=== PATIENT | female | born 2000 | race Caucasian/White ===

== ENCOUNTER 2023-08-14 14:45 | Emergency (ER) | payer BC, SELFPAY ==
[2023-08-14 14:45] VITALS: BP 121/93; PULSE 91; RESP 16; TEMP 36.8; O2SAT 99; BMI 42.9
[2023-08-14 15:12] VITALS: BP 120/93; PULSE 87; RESP 18; O2SAT 98
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
== END 2023-08-14 15:14 | disposition home or self-care (01) ==
PROVIDERS: Emergency Provider Emergency Medicine
DX: S09.8XXA Other specified injuries of head, initial encounter (principal); V43.52XA Car driver injured in collision with other type car in traffic accident, initial encounter
CPT/HCPCS: 99283

== ENCOUNTER 2025-03-13 12:54 | Outpatient (OUT) | payer BC, SELFPAY ==
[2025-03-13 13:26] LABS: Hematocrit 41.6 % (36.0-48.0); Hemoglobin 14.2 g/dL (12.0-16.0); Immature Granulocytes Abs Auto 0.00 10^3/uL (0.00-0.03); Immature Granulocytes Pct Auto 0.0 % (0.0-0.5); Lymphocytes Absolute Auto 2.0 10^3/uL (1.2-3.8); Mean Corpuscular HGB Conc 34.1 g/dL (29.9-35.2); Mean Corpuscular Hemoglobin 28.9 pg (26.7-34.0); Mean Corpuscular Volume 84.6 fL (81.0-99.0); Platelet Count 384 10^3/uL (150-450); Red Blood Count 4.92 10^6/uL (4.20-5.40); White Blood Count 5.4 10^3/uL (4.0-11.0)
[2025-03-13 13:46] LABS: Thyroid Stimulating Hormone 0.700 uIU/mL (0.358-3.740)
[2025-03-14 04:07] LABS: FSH 4.7 mIU/mL (.)
[2025-03-20 17:08] LABS: DHEA, Serum 449 ng/dL (31-701)
== END 2025-03-13 12:55 | disposition home or self-care (01) ==
LOC: LAB 12:59
PROVIDERS: Visit Provider Nurse Practitioner Family
DX: E28.2 Polycystic ovarian syndrome (principal); N92.6 Irregular menstruation, unspecified
CPT/HCPCS: 36415; 82397; 82626; 82627; 83001; 83002; 83036; 84439; 84443; 84702; 85025

== ENCOUNTER 2025-03-20 08:15 | Outpatient (OUT) | payer BC, SELFPAY ==
--- OUTSIDE RECORDS SUMMARY | 2025-03-20 08:18 | XMS_ITS | CCD ---
Author Organization [facility] Care Team Providers Care Preconstruction Manager Name Role Phone Dwayne LOMBARDO Attending Unavailable DONAL DUMONT Admitting Unavailable DORIAN KAUFFMAN Consulting DR SATYA Farfan Primary Care Unavailable DONAL DUMONT Attending Unavailable DONAL DUMONT Consulting Unavailable KARRIE ODOM Consulting Unavailable Unavailable Primary Care Provider EDUARDA Huertas Attending Unavailable Medications Current Medications Medication Drug Class(es) Dates Sig (Normalized) Sig (Original) ASHWAGANDHA PO (3 sources) ASHWAGANDHA PO Take by mouth Active guanFACINE 2 mg oral tablet (3 sources) Central alpha-2 Adrenergic Agonist End: 03-05-2025 guanFACINE (Tenex) 2 MG tablet Take by mouth 03/05/2025 Discontinued 24 hr metFORMIN hydrochloride 500 mg extended release oral tablet (3 sources) Biguanide Start: 03-05-2025 End: 04-04-2025 take 1 tablet by mouth every twenty-four hours at mealtime metFORMIN XR (Glucophage-XR) 500 MG 24 hr tablet Indications: PCOS (polycystic ovarian syndrome) Take 1 tablet (500 mg) by mouth in the evening. Take with meals Do not crush, chew, or split. 30 tablet 11 03/05/2025 04/04/2025 Active minocycline 100 mg oral capsule (3 sources) Tetracycline-clas s Drug End: 03-05-2025 minocycline 100 MG capsule 1 capsule 1 (one) time each day at the same time 03/05/2025 Discontinued Problems Problem Classification Problem Date Documented Da te Episodic/Chronic Menstrual disorders (2 sources) Irregular periods; Translations: [Irregular menstruation, unspecified] 03-05-2025 Chronic Other endocrine disorders (2 sources) Polycystic ovary syndrome; Translations: [Polycystic ovarian syndrome] 03-05-2025 Chronic Results Test Name Value Interpretation Reference Range Facility ALL CBC WITH AUTO DIFFon BASOPHILS ABSOLUTE AUTO 0 [facility] Basophils/100 WBC (Bld) 0.7 % 0.2 - 2.0 % [facility] Eosinophils/100 WBC (Bld) 1.7 % 0.9 - 7.0 % [facility] Erythrocyte distribution width (RBC) [Ratio] 13.2 % 11.0 - 15.0 % [facility] Hematocrit (Bld) [Volume fraction] 41.6 % 36.0 - 48.0 % [facility] Hemoglobin (Bld) [Mass/Vol] 14.2 g/dL 12.0 - 16.0 g/dL [facility] IMMATURE GRANULOCYTES ABS AUTO 0 [facility] Immature granulocytes/100 WBC (Bld) 0 % 0.0 - 0.5 % [facility] LYMPHOCYTES ABSOLUTE AUTO 2 [facility] Lymphocytes/100 WBC (Bld) 36.7 % 20.5 - 60.0 % [facility] MCH (RBC) [Entitic mass] 28.9 pg 26.7 - 34.0 pg [facility] MCHC (RBC) [Mass/Vol] 34.1 g/dL 29.9 - 35.2 g/dL [facility] MCV (RBC) [Entitic vol] 84.6 fL 81.0 - 99.0 fL [facility] MONOCYTES ABSOLUTE AUTO 0.4 [facility] Monocytes/100 WBC (Bld) 7.8 % 1.7 - 12.0 % [facility] NEUTROPHILS ABSOLUTE AUTO 2.9 [facility] Neutrophils/100 WBC (Bld) 53.1 % 43.0 - 75.0 % [facility] Platelet mean volume (Bld) [Entitic vol] 10 fL 9.5 - 13.5 fL [facility] EO # 0.1 [facility] PLT 384 [facility] RBC 4.92 [facility] WBC 5.4 [facility] XR FOOT RT MIN 3 VIEWSon XR FOOT RT MIN 3 VIEWS EXAM: XR FOOT RT MIN 3 VIEWS HISTORY: Pain COMPARISON: None. FINDINGS: 3 radiographs of the right foot were obtained. No fracture or dislocation. Joint spaces are well-maintained. Soft tissues are within normal limits. Os naviculare. IMPRESSION: No fracture or dislocation. Electronically authenticated by: KARRIE ODOM Date: 2022-11-11 20:20 Normal [facility] 08-27-2022 Consent [id number]:127 Normal [facility] Registrationon 08-27-2022 Registration [id number]:127 Normal [facility] Established Visit (Orthopaed ic Surgery)on 06-19-2018 Established Visit (Orthopaedic Surgery) Chief Complaint Pt here for left wrist fx. /robbin History of Present Illness ASSESSMENT + PLAN : 7 weeks postop from ORIF left ulnar styloid nonunion The long-arm cast was removed today. Work on the range of motion exercises that I demonstrated. The joint does appear stable. The incision has healed. You may gradually advance activity, but should avoid activities where your likely to take a bodyweight fall or other similar intact. Follow-up in 4 weeks for clinical check. HISTORY : Patient returns as directed, 4 weeks after last visit and about 7 weeks postop from ORIF left ulnar styloid nonunion. Given the difficulty with [place] casts, she has been in a long-arm cast. Pain has resolved. No difficulties with cast loosening. No numbness or tingling. No interval trauma. 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, subsequent encounter (993.82) (S55.272K) Past Medical History History of Colles' fracture of left radius (813.41) (S52.055A) Surgical History Denied: History Of Prior Surgery Family History Family history of cardiac disorder (V17.49) (Z82.49) Family history of diabetes mellitus (V18.0) (Z83.3) Family history of hypertension (V17.49) (Z82.49) Allergies No Known Drug Allergies Recorded By: Yulisa Diop; 04/17/2014 4:58:49 PM Current Meds Concerta 36 MG Oral Tablet Extended Release; Therapy: (Recorded:17Apr2014) to Recorded Dispense: 0 Days ; #: Sufficient; Refill: 0; TEE = N; Record; Last Updated By: Jadon Yulisa Reggie; 04/17/2014 5:18:14 PM Physical Exam Cast removed. Skin intact. Incision is well-healed and nontender. Full composite finger flexion-extension. Elbow is stiff as expected. Rotation is much better than expected, just out of a long-arm cast. Supination is 80 and pronation 70 with soft endpoints. DRUJ is stable at the end points. Sensation intact to light touch in all distributions. Capillary refill less than 2 seconds. 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 RL History of Present Illness ASSESSMENT + PLAN : Postop day 23 from ORIF left ulnar styloid nonunion This [place] cast became loose as well. Given the shape of your arm, I think a fiberglass long-arm cast will do better. One was molded to fit today. Keep this clean, dry, and in place. Follow-up as previously scheduled for cast removal and clinical check with probable advancement to unrestricted activity. HISTORY : Patient's family called in that the [place] cast had become loose. This was already the second cast since surgery. She came in for inspection and cast change. She denies interval trauma. No numbness or tingling. 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, subsequent encounter (258.29) (S52.612K) Past Medical History History of Colles' fracture of left radius (813.41) (S52.532A) Surgical History Denied: History Of Prior Surgery Family History Family history of cardiac disorder (V17.49) (Z82.49) Family history of diabetes mellitus (V18.0) (Z83.3) Family history of hypertension (V17.49) (Z82.49) Allergies No Known Drug Allergies Recorded By: Yulisa Diop; 04/17/2014 4:58:49 PM Current Meds Concerta 36 MG Oral Tablet Extended Release; Therapy: (Recorded:17Apr2014) to Recorded Dispense: 0 Days ; #: Sufficient; Refill: 0; TEE = N; Record; Last Updated By: Yulisa Diop; 04/17/2014 5:18:14 PM Physical Exam Cast removed. It was indeed loose. She does have a fairly conical arm. Skin intact. Incision is healing normally with no sign of infection. Good finger motion. Sensation intact to light touch in all distributions. Capillary refill less than 2 seconds. 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 DT History of Present Illness Cast sliding down arm after yesterday's visit. 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, subsequent encounter (393.82) (S52.612K) Past Medical History History of Colles' fracture of left radius (813.41) (S52.532A) Surgical History Denied: History Of Prior Surgery Family History Family history of cardiac disorder (V17.49) (Z82.49) Family history of diabetes mellitus (V18.0) (Z83.3) Family history of hypertension (V17.49) (Z82.49) Allergies No Known Drug Allergies Recorded By: Yulisa Diop; 04/17/2014 4:58:49 PM Current Meds Concerta 36 MG Oral Tablet Extended Release; Therapy: (Recorded:17Apr2014) to Recorded Dispense: 0 Days ; #: Sufficient; Refill: 0; TEE = N; Record; Last Updated By: Yulisa Diop; 04/17/2014 5:18:14 PM Physical Exam Wound area covered and w/o signs of bleeding or infection. Constitutional General appearance: Alert and in no acute distress. Well developed, well nourished. Musculoskeletal Gait and station: Normal. Skin Skin and subcutaneous tissue: Normal skin color and pigmentation, normal skin turgor, and no rash. 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 Keep f/u with Dr. Sandhu. Signatures Electronically signed by : Antonio Jerez, ; May 12 2018 2:23PM EST (Author) Normal [facility] Post Op (Orthopaedic Surgery) Chief Complaint POV- Clinical check (L) wrist (sx 04/25/18) History of Present Illness ASSESSMENT + PLAN : Postop day 16 from ORIF left ulna styloid nonunion The incision is healing normally. The x-rays look good. I reviewed the expected time course of healing from here. We discussed options for immobilization and agreed on use of a [place] cast, which was applied today. Keep this clean, dry, and in place for the next 4 weeks. Follow-up at that point for cast removal and clinical check with probable advancement to unrestricted activity. HISTORY : Patient returns as directed, 16 days postop from left ulnar styloid nonunion ORIF with tension band technique. Pain is decreasing appropriately in the postoperative dressing. No new numbness or tingling. No new surgeries. No interval trauma. 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, subsequent encounter (204.94) (L49.900C) Past Medical History History of Colles' fracture of left radius (813.41) (S52.532A) Surgical History Denied: History Of Prior Surgery Family History Family history of cardiac disorder (V17.49) (Z82.49) Family history of diabetes mellitus (V18.0) (Z83.3) Family history of hypertension (V17.49) (Z82.49) Allergies No Known Drug Allergies Recorded By: Yulisa Diop; 04/17/2014 4:58:49 PM Current Meds Concerta 36 MG Oral Tablet Extended Release; Therapy: (Recorded:17Apr2014) to Recorded Dispense: 0 Days ; #: Sufficient; Refill: 0; TEE = N; Record; Last Updated By: Yulisa Diop; 04/17/2014 5:18:14 PM Physical Exam Postop splint and dressing removed. Incision clean, dry, intact with Biosyn suture in place. Full composite finger flexion-extension. Clinically well aligned. DRUJ remained stable to gentle stress. Sensation intact to light touch in all distributions. Capillary refill less than 2 seconds. 2+ radial and ulnar pulses. Results/Data X-rays left wrist ordered and independently interpreted by me today confirm proper hardware position and length with anatomic reduction, unchanged from the intraoperative views. Diagnoses/Problems Closed displaced fracture of styloid process of left ulna with nonunion, subsequent encounter (913.82) (S51.984K) Signatures Electronically signed by : Vince Sandhu MD,; May 12 2018 11:55AM EST (Author) [facility] WRIST, COMPLT MIN 3 VIEWSon 05-11-2018 WRIST, COMPLT MIN 3 VIEWS Patient Name: SAMANTHA ALEXIS STUDY: WRIST COMPLT; MIN 3 VIEWS; 05/11/2018 9:42 am INDICATION: Signs/Symptoms: wrist pain. COMPARISON: 03/22/2018 ACCESSION NUMBER(S): [id number] ORDERING CLINICIAN: BUBBA SANDHU FINDINGS: Left wrist three views. Remote ulnar styloid fracture with a fixation pin noted. The hardware appears intact. No additional visualized abnormality IMPRESSION: Remote ulnar styloid fracture with intact hardware as noted Electronically signed by: BRYAN PINEDO MD Normal [facility] AMBULATORY SURGERY FLUOROSCO P[place]on 04-25-2018 AMBULATORY SURGERY FLUOROSCOPY Patient Name: SAMANTHA ALEXIS STUDY: AMBULATORY SURGERY FLUOROSCOPY; 04/25/2018 4:12 pm INDICATION: left wrist orif. COMPARISON: None. ACCESSION NUMBER(S): [id number] ORDERING CLINICIAN: BUBBA SANDHU TECHNIQUE: 3 spot fluoroscopic images of a left wrist as intraoperative procedure were submitted for interpretation on 04/25/2018. Fluoroscopic time was 8 sec. FINDINGS: 3 intraoperative spot fluoroscopic images of the left wrist were submitted. IMPRESSION: 1. Intraoperative fluoroscopy for localization purposes. Electronically signed by: ANDREIA CRAIG MD [facility] History and Physical - Surge ry > 30 dayson 04-25-2018 History and Physical - Surgery > 30 days History of Present Illness: /Lactating: Are You no (1) Are You Currently Breastfeedingno (1) History Present Illness: Reason for surgery: L ulna styloid fracture nonunion HPI: Patient has L ulna styloid fracture nonunion after remote distal radius fx managed closed at outside facility. Here for operative intervention. No interval changes since last clinic visit. Okay to proceed with surgery. Home Medication Review: Home Medications Reviewed: no Impression/Procedure: Impression and Planned Procedure: L ulna styloid fracture ORIF Review of Systems: Review of Systems: Constitutional: NEGATIVE: Chills Eyes: NEGATIVE: Diploplia ENMT: NEGATIVE: Nasal Discharge Cardiac: NEGATIVE: Dyspnea on Exertion Gastrointestinal: NEGATIVE: Nausea Genitourinary: NEGATIVE: Flank Pain Musculoskeletal: POSITIVE: Pain, Swelling, Weakness; NEGATIVE: Decreased ROM, Stiffness Psychiatric: NEGATIVE: Mood Changes Skin: NEGATIVE: Rash Allergic/Immunologic: NEGATIVE: Anaphylaxis Physical Exam: Constitutional: WD WN obese WF in NAD ; alert and cooperative Eyes: Anicteric ENMT: mucous membranes moist, no apparent injury, no lesions seen Head/Neck: NC/AT Respiratory/Thorax: Unlabored breathing on RA Cardiovascular: PPP Musculoskeletal: intact motors ; unstable DRUJ in supination Neurological: Grossly intact Skin: No gross lesions Signatures/Attestation/Cert ification: Attending AttestationI saw and evaluated the patient. I personally obtained the bartholomew and critical portions of the history and physical exam or was physically present for bartholomew and critical portions performed by the resident/fellow. I reviewed the resident/fellows documentation and discussed the patient with the resident/fellow. I agree with the resident/fellows medical decision making as documented in the residents note. I personally evaluated the patient (as noted in the above attestation) on 25-Apr-2018 Attending Provider Inpatient Certification StatementN/A - observation patient/other outpatient visits Electronic Signatures: Bubba Sandhu) (Signed 26-Apr-2018 07:59) Authored: History of Present Illness, Review of Systems, Physical Exam, Signatures/Attestation/Cert ification Co-Signer: Signatures/Attestation/Cert ification Ga Baker (Resident)) (Signed 25-Apr-2018 10:21) Authored: History of Present Illness, Home Medication Review, Impression/Procedure, Physical Exam, Signatures/Attestation/Cert ification Last Updated: 26-Apr-2018 07:59 by Bubba Sandhu) References: 1. Data Referenced From History and Physical - Surgery > 30 days 24-Apr-2018 07:39 PM Normal [facility] OPERATIVE REPORTon [place] [address] Patient Name: CHLOE. Kerrie ALEXIS : 2000 Date of Service: 04/25/2018 Patient Location: Patient Type: O Surgeon: Bubba Sandhu MD Report Type: Operative Reports PREOPERATIVE DIAGNOSIS: Left ulnar styloid nonunion. POSTOPERATIVE DIAGNOSIS: Left ulnar styloid nonunion. OPERATION/PROCEDURE: Open reduction and internal fixation, left ulnar styloid nonunion. SURGEON: Bubba Sandhu MD BAKERY HELPER(S): Ga Baker MD ANESTHESIA: General LMA. INDICATION: Samantha is a 17-year-old, right-hand dominant young lady who fell several years ago, suffering a displaced extra-articular left distal radius fracture that was managed closed at an outside institution. That fracture healed, but she had ulnar styloid nonunion and resultant mild DRUJ instability. To maximize return to function and minimize risk of posttraumatic arthritis, she is here for elective stabilization of the ulnar styloid. I reminded her and her father of surgical risks of infection; scarring; damage to nerves, tendons, or vessels; stiffness; wound healing problems; nonunion; malunion; hardware issues; and need for further surgery. They wished to proceed. NARRATIVE: Following identification of the patient and confirmation of correct site of surgery and signed operative consent, she was brought to the operating room and a hand table affixed to the cart. A general anesthetic was administered via LMA by Anesthesia along with IV antibiotic dose. A pneumatic tourniquet was placed high on the left arm, and the limb was prepped from fingertip to cuff with chlorhexidine, and draped free in the usual sterile fashion. 4 mL of a mix of 0.5% Marcaine and 1% lidocaine plain was instilled to the planned incision area. The limb was exsanguinated with an Esmarch, and the tourniquet inflated. A 4 cm longitudinal incision was made over the subcutaneous border of the ulna, centered on the ulnar styloid, and taken carefully bluntly down. Two crossing branches of the dorsal ulnar sensory nerve were carefully protected throughout the case. The periosteum was incised along the free border, just volar to the ECU tendon, and periosteal flaps elevated. The styloid nonunion site was obvious. Some organizing fibrous material was excised with a rongeur, and the bony ends gently freshened with a sharp curette. Using a soft tissue protector, a 0.054 K-wire was placed to the tip of the ulnar styloid. The styloid was then held reduced as the wire was directed under power across the nonunion site and up to engage the ulnar shaft cortex. A separate small K-wire was then used to create converging bone tunnels proximal to the ulnar neck. These were enlarged and connected with a towel clip, and a #2 steel wire was passed through. This was wrapped around the K-wire in standard [id number] fashion and tightened with a single twist knot. This gave excellent stabilization to the nonunion fragment under direct vision. Proper alignment was confirmed with C-arm in multiple planes and accepted. The wire was drawn back, bent, and re-seated in standard fashion. Periosteum was repaired with 4-0 Vicryl. The tourniquet was deflated, and pink color rapidly returned to all digits. Hemostasis was achieved with bipolar. After final irrigation, skin was closed with 4-0 Vicryl subcutaneous and 4-0 Biosyn interrupted simple skin stitch. The previous instability in pronation was now corrected. The forearm was placed in pronation and soft dressing applied, followed by a sugar-tong splint. The patient was then awakened, extubated, and transferred to Recovery in stable condition. ESTIMATED BLOOD LOSS: 2 cc. TOTAL FLUIDS: 600 mL LR. TOURNIQUET TIME: 43 minutes at 250 mmHg. INTRAOPERATIVE COMPLICATIONS: None. Bubba Sandhu MD EST TT: 04/27/2018 04:16 AM EST DICTATION NUMBER: [id number] COLT JOB NUMBER: [id number] CC: MARLYN TURPIN Edited by Bubba Sandhu 04/29/2018 07:00:37 [address] Electronically Signed by Dr. Bubba Sandhu 04/29/2018 07:00:37 AM Normal [facility] Preop Checkliston 04-25-2018 Preop Checklist Preop Checklist: Preop Checklist: Arrival [id number] Arrival Time09:45 Procedure Typeorif ulna left NPO [id number] 00:00 ID Band Onyes Allergy Bandno known allergies Consent Signedpending H&P Completepending Anesthesia Assessment Completedpending EKG Performednot ordered Chest X-Ray Performednot ordered Chlorhexadine Bath Givennot applicable Hair Washedno Soap and water bath with hair shampoo the night before surgeryno SCD's Appliedno Denturesnot applicable Prostheticsnot applicable Hearing Aidsnot applicable Valuables Securedplaced under cart Bowel Prepno Cardiovascular Assessment: Radial Pulsespalpable Extremitieswarm Respiratory Assessment: Respirationsunlabored Neurological Assessment: Level of Consciousnessalert, oriented Mobilitymoves all extremities Able to Express Selfyes Age Appropriateyes Emotional Statuscalm Preop Education: Surgical Site Infection Preventionyes Pain Scales and Managementyes Language / Communication: Language / CommunicationEnglish Electronic Signatures: Leonila Egan (WENDY) (Signed 25-Apr-2018 09:46) Authored: Preop Checklist Last Updated: 25-Apr-2018 09:46 by Leonila Egan (WENDY) [facility] Established Visit (Orthopaed ic Surgery)on 04-24-2018 Established Visit (Orthopaedic Surgery) Chief Complaint Pt here for left wrist fx. 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 I discussed the option of surgical repair with tension band technique to try to improve the stability of the wrist and decreased the pain. I reviewed the major risks and benefits of that surgery which would be done under a general anesthetic at the location of your convenience. In the meantime, continue with the current bracing. I would like to obtain an MRI of the wrist to better evaluate the remainder of the TFCC to make sure that this is the only significant pathology. Contact my office if you would like to schedule a surgical date. HISTORY : 1 Patient is a 17-year-old right-hand dominant female student who presents several years after left wrist injury. She fell in 2013, suffering an extra-articular left distal radius fracture. This was managed closed with reduction by Dr. Baron at [facility] and the radius went on to heal. She had continued discomfort at the ulnar styloid and saw Dr. Vazquez in 2014 and again just a month ago. He identified and ulnar styloid nonunion and referred her on to me for definitive management. No numbness or tingling in the fingers. No noted instability. No problems on the right. Past medical history also notable for left supracondylar fracture pinned by Dr. Gibson at 6 years of age. That healed uneventfully. Patient is not diabetic and does not smoke. She is on Focalin.2 1 Amended By: Vince Sandhu; Apr 24 2018 12:00 PM EST 2 Amended By: Vince Sandhu; Apr 24 2018 12:08 PM ESTReview of Systems An updated 30-item multi-system Review Of Systems was obtained on today's intake form. This was reviewed with the patient and is correct. It has been scanned separately into the medical record.1 1 Amended By: Vince Sandhu; Apr 24 2018 12:08 PM EST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, subsequent encounter (733.82) (S52.722K) Past Medical History History of Colles' fracture of left radius (813.41) (S52.144A) Surgical History Denied: History Of Prior Surgery Family History Family history of cardiac disorder (V17.49) (Z82.49) Family history of diabetes mellitus (V18.0) (Z83.3) Family history of hypertension (V17.49) (Z82.49) Allergies No Known Drug Allergies Recorded By: Yulisa Diop; 04/17/2014 4:58:49 PM Current Meds Concerta 36 MG Oral Tablet Extended Release; Therapy: (Recorded:17Apr2014) to Recorded Dispense: 0 Days ; #: Sufficient; Refill: 0; TEE = N; Record; Last Updated By: Yulisa Diop; 04/17/2014 5:18:14 PM Physical Exam Constitutional: Appears stated age. Well-developed and well-nourished obese female in no acute distress. Psychiatric: Pleasant normal mood and affect. Behavior is appropriate for the situation. Head: Normocephalic and atraumatic. Eyes: Pupils are equal and round. Cardiovascular: 2+ radial and ulnar pulses. Fingers well-perfused. Respiratory: Effort normal. No respiratory distress. Speaking in complete sentences. Neurologic: Alert and oriented to person, place, and time. Skin: Skin is intact, warm and dry. Hematologic / Lymphatic: No lymphedema or lymphangitis. Extremities / Musculoskeletal: Skin of the left hand and wrist is intact with no erythema, ecchymosis, or diffuse swelling. Full composite finger flexion extension and good thumb opposition. Symmetric wrist flexion extension and elbow motion. Supination 80 versus 90 on the right. Symmetric 90 pronation. Wrist extension 80 and flexion 80, symmetric. No mid-arc pain or crepitus. DRUJ in pronation has about 1.5 millimeters of symmetric travel. Supination there is about 4 millimeters of travel on the left versus just one on the right. No particular pain with this. Negative TFCC grind. Negative DRUJ grind. Sensation intact to light touch in all distributions. Capillary refill less than 2 seconds.1 1 Amended By: Vince aSndhu; Apr 24 2018 12:10 PM ESTResults/Data The full series of x-rays in PACS was reviewed and independently interpreted by me today. There was no extra-articular distal radius fracture that did go on to heal. There is no ulnar styloid nonunion, minimally displaced. DRUJ and radiocarpal joints are well-preserved. 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, subsequent encounter MRI Wrist without Contrast; Status:Complete; Done: 11Apr2018 02:45PM Performed:WL;Ordered; For:Closed displaced fracture of styloid process of left ulna with nonunion, subsequent encounter; Ordered By:Vince Sandhu; AMA Intake Activity Log Entry by Katerin Medeiros ([email or web address]) on 04/13/2018 8:26 AM Status Change: To Confirmed - N/A AMA Intake updated by Katerin Medeiros ([email or web address]) on 04/13/2018 8:26 AM New Recipient: Bubba Sandhu Appointment Date: Apr 11 2018 2:45PM Reason: Unspecified for MRI Wrist without Contrast Laterality : Left Radiologist to Determine Optimal Study : Y What are the patient's signs and symptoms? : left wrist fx and pain Signatures Electronically signed by : Vince Sandhu MD,; Apr 24 2018 12:11PM EST (Author) Normal [facility] History and Physical - Surge ry > 30 dayson 04-24-2018 History and Physical - Surgery > 30 days This report has been cancelled. Normal [facility] BN MR WRIST W/O CONTRASTon 1 BN MR WRIST W/O CONTRAST Patient Name: SAMANTHA ALEXIS STUDY: BN MR WRIST W/O CONTRAST; INDICATION: Signs/Symptoms: left wrist fx and pain. COMPARISON: Plain film radiographs March 22, 2018 Prior plain film radiographs performed March 26, 2014 ACCESSION NUMBER(S): [id number] ORDERING CLINICIAN: BUBBA SANDHU TECHNIQUE: Multiplanar multisequential MRI left wrist without contrast. FINDINGS: Remote ulnar fracture with nonunion of the ulnar styloid and a residual large ossicle. Triangular fibrocartilage intact. No other fracture seen. No marrow edema identified. No focal fluid collections seen. Carpal alignment normal. Incidental note made of type 2 lunate. No significant arthrosis noted. No joint effusion or synovitis seen. There is a small amount of fluid of the tendons of the 1st extensor compartment which suggests a component of de Quervain tenosynovitis. IMPRESSION: Small amount of fluid of the tendons of the 1st extensor compartment which suggests a component of de Quervain tenosynovitis. Remote ulnar styloid fracture with nonunion. Electronically signed by: JUNIE MCKINLEY MD [facility] Initial Visit (Orthopaedic S harpreet)on 03-22-2018 Initial Visit (Orthopaedic Surgery) Chief Complaint Wrist Pain Evaluation of left wrist pain. History of Present Illness She is now 15+2 years old. She is right-hand dominant. She was reviewed in the [place] clinic today, accompanied by her dad. She is now over 3 years status post left wrist Colles' fracture that was treated with cast immobilization. When I last saw her, she was doing objectively well. However, subjectively, she was continuing to complain of left wrist pain that I felt was most consistent with deconditioning of the left wrist muscles. I had recommended self-directed exercises and had instructed them to follow-up if her symptoms did not improve. In the interim, her pain has persisted [although they did not contact me again]. In particular, she experiences ulnar-sided wrist pain when she is participating in band [she plays the drums]. It has not been enough to limit her participation but the discomfort is noticeable to her. This has not been associated with any distal neurologic abnormalities such as numbness, tingling, or weakness. There have been no color or temperature changes distally. Physical Exam Examination revealed an obese young lady girl in no acute distress. Examination of the left wrist did not reveal any malangulation or deformity. She was tender to palpation over the ulnar styloid. Stress testing of the distal radioulnar joint revealed increased excursion on the left compared to the right. Her left wrist range of motion was full. Sensory examination was intact in the median, radial, and ulnar nerve distributions. Motor examination was intact in the median, anterior interosseous, radial, posterior interosseous, and ulnar nerve distributions. Results/Data Xray Wrist 2 [id number] 01:14PMShamar Vazquez [Mar 22, 2018 1:10PM Shamar Vazquez] Reason: Unspecified for Xray Wrist 2 View Test NameResultFlagReference Xray Wrist 2 View(Report) Interpreted by: BRYAN MELISSA SHAHIDA 03/22/18 13:17 Patient Name: SAMANTHA ALEXIS STUDY: WRIST, 2 VIEWS; 03/22/2018 1:14 pm INDICATION: Signs/Symptoms: AP and lateral left wrist. COMPARISON: 10/16/2014 ACCESSION NUMBER(S): [id number] ORDERING CLINICIAN: SHAMAR VAZQUEZ FINDINGS: AP and lateral view of the left wrist. There is a remote ulnar styloid fracture with nonunion of the distal fragment. No additional visualized abnormality. IMPRESSION: Remote ulnar styloid fracture. No additional visualized abnormality Electronically signed by: BRYAN PINEDO 03/22/18 13:17 X-rays of the left wrist obtained today in clinic were reviewed and interpreted by me. These showed that her apex volar angulation have remodeled well on the lateral view. However, on the AP view, she appears to have an ulnar styloid nonunion. Diagnoses/Problems Closed fracture of styloid process of ulna with nonunion (733.82) (S52.373K) Orders PMH: Colles' fracture of left radius Xray Wrist 2 View; Status:Resulted - Requires Verification; Done: 22Mar2018 01:14PM Performed:WL; Due:20Jun2018;Ordered; For:PMH: Colles' fracture of left radius; Ordered By:Shamar Vazquez; Reason: Unspecified for Xray Wrist 2 View Laterality : Left Radiologist to Determine Optimal Study : Y What are the patient's signs and symptoms? : AP and lateral left wrist Provider Impressions She is over 3 years status post left wrist Colles' fracture. Clinically and radiographically, she appears to have a symptomatic ulnar styloid nonunion. Patient Discussion/Summary I had a detailed discussion with the patient and her dad. I have recommended they see my hand colleague, Dr. George Sandhu, for a discussion about definitive management, including possible surgical intervention. They understood and were very much in agreement. We have scheduled an appointment for them. I am hopeful that he will be willing to assume care of this young lady's issue. Signatures Electronically signed by : Shamar Vazquez MD; Mar 22 2018 1:32PM EST (Author) Reviewed by : Vince Sandhu MD,; Mar 26 2018 9:37AM EST Normal [facility]works WRIST, 2 VIEWSon 03-22-2018 WRIST, 2 VIEWS Patient Name: SAMANTHA ALEXIS STUDY: WRIST, 2 VIEWS; 03/22/2018 1:14 pm INDICATION: Signs/Symptoms: AP and lateral left wrist. COMPARISON: 10/16/2014 ACCESSION NUMBER(S): [id number] ORDERING CLINICIAN: SHAMAR VAZQUEZ FINDINGS: AP and lateral view of the left wrist. There is a remote ulnar styloid fracture with nonunion of the distal fragment. No additional visualized abnormality. IMPRESSION: Remote ulnar styloid fracture. No additional visualized abnormality Electronically signed by: BRYAN PINEDO MD Normal [facility] Vital Signs Date Time Vital Sign Value Performing Clinician Beléni tere 03-05-2025 09:17-0400 Body height 162.6 cm EduardaJobydu Work Phone: [facility] 03-05-2025 09:17-0400 Body mass index (BMI) [Ratio] 44.93 kg/m2 [email or web address] Work Phone: [facility] 03-05-2025 09:17-0400 Body weight 118.73 kg EduardaBrickell [email or web address] Work Phone: [facility] 03-05-2025 09:17-0400 Diastolic blood pressure 90 mm[Hg] Eduarda Siva [email or web address] Work Phone: [facility] 03-05-2025 09:17-0400 Systolic blood pressure 138 mm[Hg] Eduarda Siva [email or web address] Work Phone: [facility] Healthcare Encounters Encounter Date Encounter Type Care Provider Facility Start: 03-13-2025 End: 03-13-2025 Clinisync Result Encounter Esther Logan NP Work Phone: [facility] External Department Unsolicited Start: 03-13-2025 End: 03-13-2025 Clinisync Result Encounter Esther Logan NP Work Phone: [facility] External Department Unsolicited Start: 03-05-2025 End: 03-05-2025 Bamboo flowsheet Eduarda Siva DO Work Phone: [facility] Start: 03-05-2025 End: 03-05-2025 Bamboo flowsheet Eduarda Siva DO Work Phone: [facility] Start: 03-05-2025 End: 03-05-2025 Office outpatient new 20 minutes Eduarda Siva DO Work Phone: [facility] Comment on above: PCOS (polycystic ova danial syndrome) (Primary Dx); Irregular periods/menstrual cycles Start: 03-05-2025 End: 03-05-2025 ambulatory EDUARDA SIVA Not Available Start: 11-11-2022 End: 11-11-2022 ambulatory DONAL JULIA Facility: Start: 08-27-2022 End: 08-28-2022 ambulatory Dwayne [place] Facility:[facility] Procedures Date Procedure Procedure Detail Performing Clinician Start: 03-13-2025 ALL CBC WITH AUTO DIFF Esther Logan [employer] Work Phone: Start: 07-24-2018 Follow-up visit Plan of Treatment Date Care Activity Detail Author Start: 04-10-2025 End: 04-10-2025 Patient encounter procedure 04/10/2025 11:20 AM EDT Procedure Visit [facility] [address] [place] [address] Eduarda Paniagua, DO [address] [place] [address] [facility] Start: 03-20-2025 End: 03-20-2025 Professional / ancillary services management 03/20/2025 8:30 AM EDT Ancillary Procedure [facility] [address] [address] [place] [address] [facility] Start: 03-05-2025 End: 03-05-2026 Antimullerian hormone (AMH) Antimullerian hormone (AMH) Lab Routine Irregular periods/menstrual cycles Expected: 03/05/2025 (Approximate), Expires: 03/05/2026 [facility] Comment on above: Expected: 03/05/2025 (Approximate), Expires: 03/05/2026 Start: 03-05-2025 End: 03-05-2026 DHEA DHEA Lab Routine PCOS (polycystic ovarian syndrome) Expected: 03/05/2025 (Approximate), Expires: 03/05/2026 [facility] Healthcare Comment on above: Expected: 03/05/2025 (Approximate), Expires: 03/05/2026 Start: 03-05-2025 End: 03-05-2026 US Pelvis US Pelvis w/ TV Imaging Routine PCOS (polycystic ovarian syndrome) Expected: 03/05/2025, Expires: 03/05/2026 [facility] Comment on above: Expected: 03/05/2025 , Expires: 03/05/2026 Start: 03-05-2025 End: 03-05-2025 Patient encounter procedure 03/05/2025 9:10 AM EDT Office Visit [facility] [address] [place] [address] Eduarda Paniagua DO [address] [place] [address] Arrived [facility] Comment on above: Arrived CBC W Auto Different ial panel - Blood CBC and differential Lab Routine PCOS (polycystic ovarian syndrome) Ordered: 03/05/2025 [facility] Comment on above: Ordered: 03/05/2025 DHEA-sulfate DHEA-sulfate Lab Routine PCOS (polycystic ovarian syndrome) Ordered: 03/05/2025 [facility] Comment on above: Ordered: 03/05/2025 Follicle stimulating hormone Follicle stimulating hormone Lab Routine PCOS (polycystic ovarian syndrome) Ordered: 03/05/2025 [facility] Comment on above: Ordered: 03/05/2025 hCG, quantitative, hCG, quantitative, Lab Routine PCOS (polycystic ovarian syndrome) Ordered: 03/05/2025 [facility] Work Phone: Comment on above: Ordered: 03/05/2025 Hemoglobin A1c/Hemoglobin.total in Blood Hemoglobin A1c Lab Routine Irregular periods/menstrual cycles PCOS (polycystic ovarian syndrome) Ordered: 03/05/2025 [facility] Comment on above: Ordered: 03/05/2025 Luteinizing hormone Luteinizing hormone Lab Routine PCOS (polycystic ovarian syndrome) Ordered: 03/05/2025 [facility] Comment on above: Ordered: 03/05/2025 Thyrotropin [Units/volume] in Serum or Plasma TSH Lab Routine PCOS (polycystic ovarian syndrome) Ordered: 03/05/2025 [facility] Comment on above: Ordered: 03/05/2025 Thyroxine (T4) free [Mass/volume] in Serum or Plasma T4, free Lab Routine PCOS (polycystic ovarian syndrome) Ordered: 03/05/2025 [facility] Comment on above: Ordered: 03/05/2025 Payers Date Payer Category [id number] 2020 Private Health Insurance [id number] 2020 Unknown 2002 Unknown [id number] 2002 Unknown [id number] 1975 Unknown [id number] 1959 Unknown [id number] 1959 Unknown [id number] Social History Date Type Detail Facility Start: 10-27-2024 [facility] Start: 10-27-2024 Tobacco use and exposure Smoke less tobacco non-user [facility] Start: 10-27-2024 Alcoholic beverage intake Ex-drinker (finding) [facility] Start: 10-27-2024 History of Social function [facility] Start: 10-27-2024 Tobacco use panel [facility] Start: 2000 Sex assigned at Not on file [facility] History of Present illness Narrative 03-05-2025 Esther Logan NP - 03/05/2025 9:10 AM EDT Note Date & Type Note Facility 03-05-2025 History of Presen t illness Narrative Reason for Appointment: Patient ID: Samantha Alexis is a 24 y.o. female who presents for Irregular Cycles Patient presents today for Acute Visit. MEDICATIONS Current Outpatient Medications Medication Instructions MILAD OCAMPO Take by mouth metFORMIN XR (GLUCOPHAGE-XR) 500 mg, Oral, Daily with evening meal, Do not crush, chew, or split. ALLERGIES No Known Allergies PROBLEMS Active Ambulatory Problems Diagnosis Date Noted No Active Ambulatory Problems Resolved Ambulatory Problems Diagnosis Date Noted No Resolved Ambulatory Problems Past Medical History: Diagnosis Date Attention-deficit hyperactivity disorder, unspecified type Body mass index (BMI) 35.0-35.9, adult Confluent and reticulated papillomatosis (CARP) Dietary counseling and surveillance Hyperprolactinemia (HCC) Obesity, unspecified Oppositional defiant disorder HISTORY PAST MEDICAL HISTORY SOCIAL HISTORY Past Medical History: Diagnosis Date Attention-deficit hyperactivity disorder, unspecified type Body mass index (BMI) 35.0-35.9, adult Confluent and reticulated papillomatosis (CARP) Dietary counseling and surveillance Hyperprolactinemia (HCC) Obesity, unspecified Oppositional defiant disorder Social History Tobacco Use Smoking status: Never Smokeless tobacco: Never Substance Use Topics Alcohol use: Not Currently Drug use: Not on file FAMILY HISTORY Family History Problem Relation Name Age of Onset Asthma Mother Diabetes Father SURGICAL HISTORY Past Surgical History: Procedure Laterality Date ELBOW FRACTURE SURGERY Left WRIST FRACTURE SURGERY Left REVIEW OF SYSTEMS Review of Systems: Review of Systems Constitutional: Positive for unexpected weight change. HENT: Negative. Eyes: Negative. Respiratory: Negative. Cardiovascular: Negative. Gastrointestinal: Negative. Genitourinary: Positive for menstrual problem. Musculoskeletal: Negative. Skin: Negative. Acanthosis nigricans Neurological: Negative. All other systems reviewed and are negative. Hematological: Negative. Endocrine: Negative. Allergic/Immunologic: Negative. OBJECTIVE Objective: Physical Exam Constitutional: Appearance: Normal appearance. She is well-developed. Genitourinary: Vulva normal. Cardiovascular: Rate and Rhythm: Normal rate and regular rhythm. Pulmonary: Effort: Pulmonary effort is normal. Breath sounds: Normal breath sounds. Abdominal: General: Bowel sounds are normal. There is no distension. Palpations: Abdomen is soft. Tenderness: There is no abdominal tenderness. There is no guarding or rebound. Musculoskeletal: General: No swelling. Normal range of motion. Right lower leg: No edema. Left lower leg: No edema. Neurological: Mental Status: She is alert and oriented to person, place, and time. Skin: General: Skin is warm and dry. Psychiatric: Mood and Affect: Mood normal. Behavior: Behavior normal. Vitals and nursing note reviewed. Exam conducted with a music arranger present. Vitals: Estimated body mass index is 44.93 kg/m as calculated from the following: Height as of this encounter: 5' 4 . Weight as of this encounter: 261 lb 12 oz. BP: 138/90 No LMP recorded (lmp unknown). ASSESSMENT & PLAN ICD-10-CM 1. PCOS (polycystic ovarian syndrome) E28.2 hCG, quantitative, TSH T4, free CBC and differential Follicle stimulating hormone Luteinizing hormone Hemoglobin A1c DHEA-sulfate DHEA US Pelvis w/ TV DHEA metFORMIN XR (Glucophage-XR) 500 MG 24 hr tablet 2. Irregular periods/menstrual cycles N92.6 Hemoglobin A1c Antimullerian hormone (AMH) Antimullerian hormone (AMH) Patient with complaints of irregular menstrual cycles and weight gain. Will obtain pelvic ultrasound and baseline labs. Will begin Metformin at 500mg. We discussed diet and exercise and weight bearing exercise. Patient will return in 4 weeks and will schedule for well woman PAP/ yearly visit. Documented by Esther oLgan NP on behalf of: Eduarda Paniagua DO documented in this encounter [facility] Evaluation note Note Date & Type Note Facility Evaluation note Diagnosis PCOS (polycystic ovarian syndrome)- Primary Polycystic ovaries Irregular periods/menstrual cycles documented in this encounter [facility] Summary Purpose Family History No Family History Records FoundNo Family History Records FoundNo Family History Records FoundNo Family History Records FoundNo Family History Records Found Advance Directives No Advanced Directives Records FoundNo Advanced Directives Records FoundNo Advanced Directives Records FoundNo Advanced Directives Records FoundNo Advanced Directives Records Found Procedure Findings Note Post Operative Note: PreOp D iagnosis: L ulnar styloid fracture nonunion Post-Procedure Diagnosis: same Procedure: ORIF L ulnar styloidnonunion Surgeon: Dr. Sandhu Resident/Fellow/Other Criminal Justice Department Chair: Samuel Anesthesia: General LMA I.V. Fluids: 600 cc LR Estimated Blood Loss (mL): 2 Blood Replacement: none Specimen: no Complications: none immediate Findings: unstable nonunion Patient Returned To/Condition: PACU in good Tourniquet Times: 43 minutes at 250 mmHg Implants: K wire and #2 steel as tension band Operative Report Dictated: Dictation: yes Dictated by: Edson Signature/Cosignature/Attestation: Attending AttestationI was present for the entire procedure Electronic Signatures: Bubba Sandhu) (Signed 26-Apr-2018 08:01) Authored: Post Operative Note, Signature/Cosignature/Attestation Co-Signer: Post Operative Note, Signature/Cosignature/Attestation Ga Baker (Resident)) (Signed 25-Apr-2018 15:54) Authored: Post Operative Note, Signature/Cosignature/Attestation (more content not included)... Additional Source Comments INFORMATION SOURCE (unrecogn ized section and content) DATE CREATED AUTHOR 08/03/2018 [employer] DATE CREATED AUTHOR AUTHOR'S ORGANIZ ATION 11/18/2018 [facility] DATE CREATED AUTHOR AUTHOR'S ORGANIZ ATION 08/28/2022 [facility] DATE CREATED AUTHOR AUTHOR'S ORGANIZ ATION 11/20/2022 [facility] DATE CREATED AUTHOR AUTHOR'S ORGANIZ ATION 03/05/2025 [facility] EPIC Reason for Visit (unrecogniz ed section and content) Reason Comments Irregular Cycles FOR RECORDS PERTAINING TO PATIENTS WHO ARE OR HAVE BEEN ENROLLED IN A CHEMICAL DEPENDENCY/SUBSTANCEABUSE PROGRAM, SOME INFORMATION MAY BE OMITTED. This clinical summary was aggregated from multiple sources. Caution should be exercised in using it in the provision of clinical care. This summary normalizes information from multiple sources, and as a consequence, information in this document may materially change the coding, format and clinical context of patient data. In addition, data may be omitted in some cases. CLINICAL DECISIONS SHOULD BE BASED ON THE PRIMARY CLINICAL RECORDS. [facility] [employer] [facility]. provides no warranty or guarantee of the accuracy or completeness of information in this document.
--- NOTE | 2025-03-20 08:26 | US_ITS ---
The [address] [address] Patient Name: EDMAR ALEXIS MRN: [id number] date: 2000 Sex: F Assigned Patient Location: Current Patient Location: Accession/Order Number: [id number] Exam Date: 03/20/2025 08:30 Report Date: 03/20/2025 10:00 At the request of: EHSAN GAN Procedure: US pelvis w/ transvaginal ULTRASOUND PELVIS WITH TRANSVAGINAL CLINICAL DATA: Heavy menstrual bleeding. Polycystic ovary syndrome. COMPARISON: None Real-time ultrasound evaluation the pelvis was performed utilizing both a transabdominal and transvaginal approach. TRANSABDOMINAL: Estimated uterine size is approximately 9.1 x 2.9 x 4.6 cm. No focal myometrial abnormalities are seen. The endometrial lining is estimated at 6 mm. Both ovaries are visualized. The right contains a small cyst. TRANSVAGINAL: Transvaginal imaging was performed to better evaluate the uterus and adnexa. By this approach, no focal myometrial abnormalities are identified. The endometrial lining is estimated at 9 mm. Both ovaries are again seen. The right measures 4.4 x 3.1 x 3.1 cm. It contains a small cyst measuring 2.5 x 1.7 x 2.0 cm. There are at least 8 tiny follicles measuring up to 3 - 4 mm in size. The left ovary measures 2.0 x 2.2 x 3.8 cm. There are at least 9 tiny follicles measuring under 5 mm in size. There is documentation of ovarian blood flow with resistive indices of 0.6 bilaterally.. No free fluid is identified. US/US pelvis w/ transvaginal IMPRESSION: SMALL RIGHT RENAL CYST. MULTIPLE TINY BILATERAL FOLLICLES WHICH WOULD BE COMPATIBLE WITH HISTORY OF POLYCYSTIC OVARY SYNDROME. Impression dictated by: Lilian Rodas M.D. 03/20/2025 10:00 AM Dictation Location: [place] [address] Electronically authenticated by: [id number] Y Date: 03/20/2025 10:00
== END 2025-03-20 08:16 | disposition home or self-care (01) ==
LOC: US 08:15
PROVIDERS: Visit Provider Nurse Practitioner Family
DX: E28.2 Polycystic ovarian syndrome (principal)
CPT/HCPCS: 76830; 76856

== ENCOUNTER 2025-04-10 19:25 | Outpatient (REF) | payer BC, SELFPAY ==
--- OUTSIDE RECORDS SUMMARY | 2025-04-10 11:20 | XMS_ITS | Encounter Summary ---
Author Organization [facility] Address [address] [place] [address] Care Team Providers Care Global Manager Name Role Phone Unavailable Primary Care Provider Unavailabl e Reason for Visit * ReasonCommentsWell Women Visit Encounter Details DateTypeDepartmentCare Team (Latest Contact Info)Nlsjuhjiwns31/28/2025 11:20 AM EDTProcedure Visit [facility] [address] [place] [address] Chino Paniagua DO [address] [place] [address] Well woman exam with routine gynecological exam; Dysmenorrhea Social History Tobacco UseTypesPacks/DayYears UsedDateSmoking Tobacco: NeverSmokeless Tobacco: NeverAlcohol UseStandard Drinks/WeekCommentsNot Currently0 (1 standard drink = 0.6 oz pure alcohol)CommentsUnknownSex and Gender InformationValueDate RecordedSex Assigned at BirthNot on fileLegal HjeDbkrrd52/15/2023 7:36 PM EDT Gender IdentityNot on fileSexual OrientationNot on filedocumented as of this encounter Last Filed Vital Signs Vital SignReadingTime TakenCommentsBlood [id number]/8410 11:37 AM EDT Pulse--Temperature--Respiratory Rate--Oxygen Saturation--Inhaled Oxygen Concentration--Uzboxo377 kg (256 lb 8 oz)04/10/2025 11:37 AM EDTHeight--Body Mass Index44.0309 9:17 AM EDTdocumented in this encounter Progress Notes * Lilian Hurtado LPN - 04/10/2025 11:20 AM EDT Reason for Appointment: Patient ID: Samantha Hernandez is a 24 y.o. female who presents for Well Women Visit Patient presents today for Annual Exam. MEDICATIONS Current Outpatient Medications Medication Instructions ASHWAGANDHA PO Take by mouth metFORMIN XR (GLUCOPHAGE-XR) 500 [...] Review of Systems: Review of Systems Constitutional: Negative. HENT: Negative. Eyes: Negative. Respiratory: Negative. Cardiovascular: Negative. Gastrointestinal: Negative. Genitourinary: Negative. Musculoskeletal: Negative. Skin: Negative. Neurological: Negative. All other systems reviewed and [...] nursing note reviewed. Exam conducted with a measurement department chief clerk present. Vitals: Estimated body mass index is 44.03 kg/m?? as calculated from the following: Height as of 03/05/25: 5' 4 . Weight as of this encounter: 256 lb 8 oz. BP: 126/84 No LMP recorded. ASSESSMENT & PLAN ICD-10-CM 1. Well woman exam with routine gynecological exam Z01.419 No orders of the defined types were placed in this encounter. Annual Wellness Exam: Patient presents today for routine annual exam. Patient states she has no current complaints. Patients vitals were reviewed and within normal limits. Growth and development is noted to be appropriate for age. Menstrual history is noted to be regular with no concerns reported. No mental health concerns was expressed. Pap Smear: Speculum was inserted into the vagina and pap was obtained without difficulty. No HPV testing was performed per age guideline. Patient was advised that pap results could take anywhere from 7 to 10 days to receive and our office will reach out to the patient with those once we have them. Patient canalso view results via [facility]. I reinforced importance of condom use for STI prevention. Patient declined cultures to be performed with today's visit. Breast Exam: Upon examination, clinical breast exam was noted to be normal, small adenoma noted. Patient was counseled on breast self-awareness, including the importance of knowing what is normal for her own breasts and promptly reporting any changes such as new lumps, skin dimpling, nipple discharge, or pain. Screening mammogram recommended annually beginning at age 40 or earlier if risk factors are present. Discussed signs and symptoms of breast cancer and when to seek medical attention. Answered all patient questions. Contraceptive Counseling (if applicable): Patient is currently using no control at this time as a form of contraceptive. Patient does not desire control at this time. Follow Up: Patient is to return to our office in one year for annual exam unless needed otherwise. Documented by Lilian Hurtado LPN on behalf of: Chino Paniagua DO documented in this encounter Plan of Treatment NameTypePriorityAssociated DiagnosesOrder SchedulePap SmearPathology and CytologyRoutine Well woman exam with routine gynecological exam Ordered: 04/10/2025documented as of this encounter Visit Diagnoses Diagnosis Well woman exam with routine gynecological exam Routine gynecological examination Dysmenorrhea documented in this encounter
--- OUTSIDE RECORDS SUMMARY | 2025-04-10 19:29 | XMS_ITS | CCD ---
Author Organization [facility] Care Team Providers Care Hr Consultant Name Role Phone Dwayne LOMBARDO Attending Unavailable DONAL DUMONT Admitting Unavailable DORIAN KAUFFMAN Consulting DR SATYA Farfan Primary Care Unavailable DONAL DUMONT Attending Unavailable DONAL DUMONT Consulting Unavailable KARRIE ODOM Consulting Unavailable Unavailable Primary Care Provider EDUARDA Huertas Attending Unavailable Medications Current Medications MedicationDrug Class(es)DatesSig (Normalized)Sig (Original)ASHWAGANDHA PO (6 sources)ASHWAGANDHA PO Take by mouth ActiveguanFACINE 2 mg oral tablet (3 sources)Central alpha-2 Adrenergic Agonist End: 65-75-8508pletUUHJBN (Tenex) 2 MG tablet Take by mouth 03/05/2025 Discontinuedibuprofen 800 mg oral tablet (1 source)Nonsteroidal Anti-inflammatory DrugStart: 04-10-2025 End: 91-40-9446bulp 1 tablet by mouth every eight hours for painibuprofen 800 MG tablet Indications: Dysmenorrhea Take 1 tablet (800 mg) by mouth every 8 (eight) hours if needed for mild pain 40 tablet 04/10/2025 05/10/2025 Fyexxs17 hr metFORMIN hydrochloride 500 mg extended release oral tablet (6 sources)BiguanideStart: 03-05-2025 End: 18-20-0748lhen 1 tablet by mouth every twenty-four hours at mealtime metFORMIN XR (Glucophage-XR) 500 MG 24 hr tablet Indications: PCOS (polycystic ovarian syndrome) Take 1 tablet (500 mg) by mouth in the evening. Take with meals Do not crush, chew, or split. 30 tablet 11 03/05/2025 Activeminocycline 100 mg oral capsule (3 sources)Tetracycline-class Drug End: 88-28-9579qwtvxzmttgh 100 MG capsule 1 capsule 1 (one) time each day at the same time 03/05/2025 Discontinued Problems Problem ClassificationProblemDateDocumented DateEpisodic/ChronicMenstrual disorders (3 sources)Irregular periods; Translations: [Irregular menstruation, unspecified]30-25-5886RdnebnvRsgwq endocrine disorders (2 sources)Polycystic ovary syndrome; Translations: [Polycystic ovarian syndrome]37-35-2332Evmyriu Results Test NameValueInterpretationReference RangeFacilityUS PELVIS W/ TRANSVAGINALon 78-00-3197[place]bt[place] [address] Ultrasound Report Signed Patient: SAMANTHA ALEXIS MR#: [id number] : 2000 Acct:[id number] Age/Sex: 24 / F ADM Date: 03/20/25 Loc: US Attending Dr: Esther Logan Ordering Physician: Esther Logan Date of Service: 03/20/25 Procedure(s): US pelvis w/ transvaginal Accession Number(s): [id number] cc: Esther Logan; Physician,Non-Staff M.D. The [place] [address] Patient Name: SAMANTHA ALEXIS MRN: [id number] date: 2000 Sex: F Assigned Patient Location: Current Patient Location: US Accession/Order Number: [id number] Exam Date: 03/20/2025 08:30 Report Date: 03/20/2025 10:00 At the request of: ESTHER LOGAN Procedure: US pelvis w/ transvaginal ULTRASOUND PELVIS WITH TRANSVAGINAL CLINICAL DATA: Heavy menstrual bleeding. Polycystic ovary syndrome. COMPARISON: None Real-time ultrasound evaluation the pelvis was performed utilizing both a transabdominal and transvaginal approach. TRANSABDOMINAL: Estimated uterine size is approximately 9.1 x 2.9 x 4.6 cm. No focal myometrial abnormalities are seen. The endometrial lining is estimated at 6 mm. Both ovaries are visualized. The right contains a small cyst. TRANSVAGINAL: Transvaginal imaging was performed to better evaluate the uterus and adnexa. By this approach, no focal myometrial abnormalities are identified. The endometrial lining is estimated at 9 mm. Both ovaries are again seen. The right measures 4.4 x 3.1 x 3.1 cm. It contains a small cyst measuring 2.5 x 1.7 x 2.0 cm. There are at least 8 tiny follicles measuring up to 3 - 4 mm in size. The left ovary measures 2.0 x 2.2 x 3.8 cm. There are at least 9 tiny follicles measuring under 5 mm in size. There is documentation of ovarian blood flow with resistive indices of 0.6 bilaterally.. No free fluid is identified. US/US pelvis w/ transvaginal IMPRESSION: SMALL RIGHT RENAL CYST. MULTIPLE TINY BILATERAL FOLLICLES WHICH WOULD BE COMPATIBLE WITH HISTORY OF POLYCYSTIC OVARY SYNDROME. Impression dictated by: Lilian Rodas M.D. 03/20/2025 10:00 AM Dictation Location: [place] [address] Electronically authenticated by: [id number] Y Date: 03/20/2025 10:00 Dictated By: Lilian Rodas M.D. Signed By: 03/20/25 1003 DD/ 1000 TD/TT: Special Technical Operations Officer:TBHRadiology, Radiologist, - 03/20/2025 [place] [address] Ultrasound Report Signed Patient: SAMANTHA ALEXIS MR#: [id number] : 2000 Acct:[id number] Age/Sex: 24 / F ADM Date: 03/20/25 Loc: US Attending Dr: Esther Logan Ordering Physician: Esther Logan Date of Service: 03/20/25 Procedure(s): US pelvis w/ transvaginal Accession Number(s): [id number] cc: Esther Logan; Physician,Non-Staff M.Lacie [facility] [place] [id number] Patient Name: SAMANTHA ALEXIS MRN: [id number] date: 2000 Sex: F Assigned Patient Location: US Current Patient Location: US Accession/Order Number: [id number] Exam Date: 03/20/2025 08:30 Report Date: 03/20/2025 10:00 At the request of: ESTHER IVEYLY Procedure: US pelvis w/ transvaginal ULTRASOUND PELVIS WITH TRANSVAGINAL CLINICAL DATA: Heavy menstrual bleeding. Polycystic ovary syndrome. COMPARISON: None Real-time ultrasound evaluation the pelvis was performed utilizing both a transabdominal and transvaginal approach. TRANSABDOMINAL: Estimated uterine size is approximately 9.1 x 2.9 x 4.6 cm. No focal myometrial abnormalities are seen. The endometrial lining is estimated at 6 mm. Both ovaries are visualized. The right contains a small cyst. TRANSVAGINAL: Transvaginal imaging was performed to better evaluate the uterus and adnexa. By this approach, no focal myometrial abnormalities are identified. The endometrial lining is estimated at 9 mm. Both ovaries are again seen. The right measures 4.4 x 3.1 x 3.1 cm. It contains a small cyst measuring 2.5 x 1.7 x 2.0 cm. There are at least 8 tiny follicles measuring up to 3 - 4 mm in size. The left ovary measures 2.0 x 2.2 x 3.8 cm. There are at least 9 tiny follicles measuring under 5 mm in size. There is documentation of ovarian blood flow with resistive indices of 0.6 bilaterally.. No free fluid is identified. US/US pelvis w/ transvaginal IMPRESSION: SMALL RIGHT RENAL CYST. MULTIPLE TINY BILATERAL FOLLICLES WHICH WOULD BE COMPATIBLE WITH HISTORY OF POLYCYSTIC OVARY SYNDROME. Impression dictated by: Lilian Rodas M.D. 03/20/2025 10:00 AM Dictation Location: [place] [address] Electronically authenticated by: [id number] Y Date: 03/20/2025 10:00 Dictated By: Lilian Rodas M.D. Signed By: 03/20/25 1003 DD/ 1000 TD/TT: Special Technical Operations Officer: SUDHA HealthcareRadiology Study observation (narrative)SUDHA HealthcareUS PELVIS W/ TRANSVAGINALOrdered By: Radiologist Radiology on 26-62-0546VATJ [employer] Work Phone: all CBC WITH AUTO DIFFon 63-67-9817QBPWGNAUR ABSOLUTE BUWV6UUUY HealthcareBasophils/100 WBC (Bld)0.7 %0.2 - 2.0 %[facility] Eosinophils/100 WBC (Bld)1.7 %0.9 - 7.0 %[facility] HospitalErythrocyte distribution width (RBC) [Ratio]13.2 %11.0 - 15.0 %[facility] HospitalHematocrit (Bld) [Volume fraction]41.6 %36.0 - 48.0 %[facility] HospitalHemoglobin (Bld) [Mass/Vol]14.2 g/dL 12.0 - 16.0 g/dLHarry S. Truman Memorial Veterans' HospitalIMMATURE GRANULOCYTES ABS XBLA4FYPQHarry S. [facility] Immature granulocytes/100 WBC (Bld)0 %0.0 - 0.5 %[facility]' HospitalLYMPHOCYTES ABSOLUTE CCBJ8PLJXSaint John's Saint Francis HospitalLymphocytes/100 WBC (Bld)36.7 %20.5 - 60.0 %[facility] CenterH (RBC) [Entitic mass]28.9 pg26.7 - 34.0 pgWashington University Medical CenterHC (RBC) [Mass/Vol]34.1 g/dL29.9 - 35.2 g/dLWashington University Medical CenterV (RBC) [Entitic vol]84.6 fL 81.0 - 99.0 fLHarry S. Truman Memorial Veterans' HospitalMONOCYTES ABSOLUTE AUTO0.4[facility] Monocytes/100 WBC (Bld)7.8 %1.7 - 12.0 %[facility]' HospitalNEUTROPHILS ABSOLUTE AUTO 2.9NOSaint John's Saint Francis HospitalNeutrophils/100 WBC (Bld)53.1 %43.0 - 75.0 %[facility] Platelet mean volume (Bld) [Entitic vol]10 fL9.5 - 13.5 fLProgress West Hospital EO #0.1N[facility] GHK599XMFNSaint John's Breech [facility] RBC4.92NOSaint John's Breech [facility] Center WBC5.4 [facility]' HospitalCLINISYNCNOMS HealthcareXR FOOT RT MIN 3 VIEWSon 66-49-6042CK FOOT RT MIN 3 VIEWSEXAM: XR FOOT RT MIN 3 VIEWS HISTORY: Pain COMPARISON: None. FINDINGS: 3 radiographs of the right foot were obtained. No fracture or dislocation. Joint spaces are well-maintained. Soft tissues are within normal limits. Os naviculare. IMPRESSION: No fracture or dislocation. Electronically authenticated by: KARRIE ODOM Date: 2022-11-11 20:20[facility] 57-55-4890Vwiqgdp [id number]#1.00CD:127Doctors HospitalRegistrationon 68-31-7620Ukcyhympeqbb [id number]#1.00CD:127Doctors HospitalEstablished Visit (Orthopaedic Surgery)on 64-78-1999Kjexskmmzpq Visit (Orthopaedic Surgery)Chief Complaint Pt here for left wrist fx. /robbin History of Present Illness ASSESSMENT + PLAN : 7 weeks postop from ORIF left ulnar styloid nonunion The long-arm cast was removed today. Work on the range of motion exercises that I demonstrated. Thejoint does appear stable. The incision has healed. You may gradually advance activity, but should avoid activities where your likely to take a bodyweight fall or other similar intact. Follow-up in 4 weeks for clinical check. HISTORY : Patient returns as directed, 4 weeks after last visit and about 7 weeks postop from ORIF left ulnarstyloid nonunion. Given the difficulty with [place] casts, she has been in a long-arm cast. Pain has resolved. No difficulties with cast loosening. No numbness or tingling. No interval trauma. 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 RL History of Present Illness ASSESSMENT + PLAN : Postop day 23 from ORIF left ulnar styloid nonunion This [place] cast became loose as well. Given the shape of your arm, I think a fiberglass long-arm cast will do better. One was molded to fit today. Keep this clean, dry, and in place. Follow-up as previously scheduled for cast removal and clinical check with probable advancement to unrestricted activity. HISTORY : Patient's family called in that the [place] cast had become loose. This was already the second castsince surgery. She came in for inspection and cast change. She denies interval trauma. No numbness or tingling. 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 DT History of Present Illness Cast sliding down arm after yesterday's visit. 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 Keep f/u with Dr. Sandhu. Signatures Electronically signed by : Antonio Jerez, ; May 12 2018 2:23PM EST (Author)[facility] TouchworksPost Op (Orthopaedic Surgery)Chief Complaint POV- Clinical check (L) wrist (sx 04/25/18) History of Present Illness ASSESSMENT + PLAN : Postop day 16 from ORIF left ulna styloid nonunion The incision is healing normally. The x-rays look good. I reviewed the expected time course of healing from here. We discussed options for immobilization and agreed on use of a [place] cast, which was applied today. Keep this clean, dry, and in place for the next 4 weeks. Follow-up at that point for cast removal and clinical check with probable advancement to unrestricted activity. HISTORY : Patient returns as directed, 16 days postop from left ulnar styloid nonunion ORIF with tension bandtechnique. Pain is decreasing appropriately in the postoperative dressing. No new numbness or tingling. No new surgeries. No interval trauma. 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 2+ radialand ulnar pulses. Results/Data X-rays left wrist ordered and independently interpreted by me today confirm proper hardware position and length with anatomic reduction, unchanged from the intraoperative views. 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 COMPARISON: 03/22/2018 ACCESSION NUMBER(S): [id number] ORDERING CLINICIAN: BUBBA SANDHU FINDINGS: Left wrist three views. Remote ulnar styloid fracture with a fixation pin noted. The hardware appears intact. No additional visualized abnormality IMPRESSION: Remote ulnar styloid fracture with intact hardware as noted Electronically signed by: Harsha SARGENTKit Carson County Memorial HospitalAMBULATORY SURGERY FLUOROSCOPYon 30-47-4753TVQDZUNRKG SURGERY FLUOROSCOPY Patient Name: SAMANTHA ALEXIS STUDY: AMBULATORY SURGERY FLUOROSCOPY; 04/25/2018 4:12 pm INDICATION: left wrist orif. COMPARISON: None. ACCESSION NUMBER(S): [id number] ORDERING CLINICIAN: BUBBA SANDHU TECHNIQUE: 3 spot fluoroscopic images of a left wrist as intraoperative procedure were submitted for interpretation on 04/25/2018. Fluoroscopic time was 8 sec. FINDINGS: 3 intraoperative spot fluoroscopic images of the left wrist were submitted. IMPRESSION: 1. Intraoperative fluoroscopy for localization purposes. Electronically signed by: Harsha KEENANKit Carson County Memorial HospitalHistory and Physical - Surgery > 30 dayson 22-43-1629Ixnmdzy and Physical - Surgery > 30 daysHistory of Present Illness: /Lactating: Are You no [...] Neurological: Grossly intact Skin: No gross lesions Signatures/Attestation/Certification: Attending AttestationI saw and evaluated the patient. [...] Present Illness, Review of Systems, Physical Exam, Signatures/Attestation/Certification Co-Signer: Signatures/Attestation/Certification Ga Baker (Resident)) (Signed 25-Apr-2018 10:21) Authored: History of Present Illness, Home Medication Review, Impression/Procedure, Physical Exam, Signatures/Attestation/Certification Last Updated: 26-Apr-2018 07:59 by Bubba Sandhu) References: 1. Data Referenced From History and Physical - Surgery > 30 days 24-Apr-2018 07:39 [facility] CenterOPERATIVE REPORTon 56-72-8605QQUMNE[place] [address] Patient Name: CHLOE. Kerrie ALEXIS : 2000 Date of Service: 04/25/2018 Patient Location: Patient Type: O Surgeon: Bubba Sandhu MD Report Type: Operative Reports PREOPERATIVE DIAGNOSIS: Left ulnar styloid nonunion. POSTOPERATIVE DIAGNOSIS: Left ulnar styloid nonunion. OPERATION/PROCEDURE: Open reduction and internal fixation, left ulnar styloid nonunion. SURGEON: Bubba Sandhu MD DIRECTOR OF FIELD SERVICE(S): Ga Baker MD ANESTHESIA: General LMA. INDICATION: [...] was wrapped around the K-wire in standard wspiow-vh-cvsrk fashion and tightened with a single twist [...] TT: 04/27/2018 04:16 AM EST DICTATION NUMBER: [id number] COLT JOB NUMBER: [id number] CC: MARLYN TURPIN Edited by Bubba Sandhu 04/29/2018 07:00:37 [address] Signed by Dr. Bubba Sandhu 04/29/2018 07:00:37 AMNormal Specialty Hospital at MonmouthPreop Checkliston 83-43-1524Nuemx ChecklistPreop Checklist: Preop Checklist: Arrival Ceww02-Mim-3725 Arrival Time09:45 Procedure Typeorif ulna left NPO Hazvpx02-Fle-5228 00:00 ID Band Onyes Allergy Bandno known [...] Last Updated: 25-Apr-2018 09:46 by Leonila Egan (WENDY)[facility] HospitalEstablished Visit (Orthopaedic Surgery)on 62-37-7441Buqoaomrdfv Visit (Orthopaedic Surgery)Chief Complaint Pt here for left wrist fx. [...] of one of the ligaments. I discussed theoption of surgical repair with tension band technique [...] female student who presents several years after leftwrist injury. She fell in 2013, suffering an extra- articular left distal radius fracture. This was managed closed with reduction by Dr. Baron at [facility] and the radius went on to heal. She had continued discomfort at the ulnar styloid and saw Dr. Vazquez in 2014 and again just a month ago. He identified and ulnar styloid nonunion and referred her on to me for definitive management. No numbnessor tingling in the fingers. No noted instability. No problems on the right. Past medical history also notable for left supracondylar fracture pinned by Dr. Gibson at 6 years of age. That healed uneventfully. Patient is not diabetic and does not smoke. She is on Focalin.2 1 Amended By: Vince Sandhu; Apr 24 2018 12:00 PM EST 2 Amended By: Vince Sandhu; Apr 387913 12:08 PM ESTReview of Systems An updated 30-item multi-system Review Of Systems was obtained on today's intake form. This was reviewed with the patient and is correct. 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 There wasno extra-articular distal radius fracture that did go on to heal. There is no ulnar styloid nonunion, minimally displaced. DRUJ and radiocarpal joints are well-preserved. 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 COMPARISON: Plain film radiographs March 22, 2018 Prior plain film radiographs performed March 26, 2014 ACCESSION NUMBER(S): [id number] ORDERING CLINICIAN: BUBBA EDSON TECHNIQUE: Multiplanar multisequential MRI left wrist without [...] styloid fracture with nonunion. Electronically signed by: [place] TRACY [facility] HospitalInitial Visit (Orthopaedic Surgery)on 80-98-8050Zmayeoh Visit (Orthopaedic Surgery)Chief Complaint Wrist Pain Evaluation of left wrist pain. History of Present Illness She is now 15+2 years old. She is right-hand dominant. She was reviewed in the [place] clinic today, accompanied by her dad. She [...] had instructed them to follow-up if her symptomsdid not improve. In the interim, her pain has persisted [although they did not contact me again]. In particular, sheexperiences ulnar-sided wrist pain when she is participating [...] wrist range of motion was full. Sensory examinationwas intact in the median, radial, and ulnar nerve distributions. Motor examination was intact in the median, anterior interosseous, radial, posterior interosseous, and ulnar nerve distributions. Results/Data Xray Wrist 2 Qcen01Oyb1592 01:14PMShamar Vazquez [Mar 22, 2018 1:10PM Shamar Vazquez] Reason: Unspecified for Xray Wrist 2 View Test NameResultFlagReference Xray Wrist 2 View(Report) Interpreted by: BRYAN MELISSA SHAHIDA 03/22/18 13:17 Patient Name: SAMANTHA ALEXIS STUDY: WRIST, 2 VIEWS; 03/22/2018 1:14 pm INDICATION: Signs/Symptoms: AP and lateral left wrist. COMPARISON:10/16/2014 ACCESSION NUMBER(S): [id number] ORDERING CLINICIAN: SHAMAR VAZQUEZ FINDINGS: AP and lateral view of the left wrist. There is a remote ulnar styloid fracture with nonunion of the distal fragment. No additional visualized abnormality. IMPRESSION: Remote ulnar styloid fracture. No additionalvisualized abnormality Electronically signed by: BRYAN PINEDO 03/22/18 13:17 X-rays of the left wrist obtained today in clinic were reviewed and interpreted by me. These showedthat her apex volar angulation have remodeled well on the lateral view. However, on the AP view, she appears to have an ulnar styloid nonunion. Diagnoses/Problems Closed fracture of styloid process of ulna with nonunion (733.82) (T12.303K) Orders PMH: Colles' fracture of left radius [...] that he will be willing to assume careof this young lady's issue. Signatures Electronically signed by : Shamar Vazquez MD; Mar 22 2018 1:32PM EST (Author) Reviewed by : Vince Sandhu MD,; Mar 26 2018 9:37[address] Hospital Touchworks WRIST, 2 VIEWSon 63-19-3179ANOPN, 2 VIEWSMRN: [id number] Patient Name: SAMANTHA ALEXIS STUDY: WRIST, 2 VIEWS; 03/22/2018 1:14 pm INDICATION: Signs/Symptoms: AP and lateral left wrist. COMPARISON: 10/16/2014 ACCESSION NUMBER(S): [id number] ORDERING CLINICIAN: SHAMAR VAZQUEZ FINDINGS: AP and lateral view of the left wrist. There is a remote ulnar styloid fracture with nonunion of the distal fragment. No additional visualized abnormality. IMPRESSION: Remote ulnar styloid fracture. No additional visualized abnormality Electronically signed by: BRYAN PINEDO MDRice Memorial Hospital Vital Signs Date TimeVital SignValuePerforming OhzfgpcshRgftkebc12-36-8591 11:37-0400Body mass index (BMI) [Ratio]44.03 kg/k2Zguqb Koubachi DO Work Phone: [phone] LabsSaint John's Saint Francis HospitalEzyqffiiyk51-72-4006 11:37-0400Body pohbgb470.35 kgCoreLookIt Work Phone: Juxta LabsSaint John's Saint Francis HospitalJbvklahwte80-38-0537 11:37-0400Diastolic blood lnlbnedx96 mm[Hg]Eduarda Siva DO Work Phone: [phone] LabsSaint John's Saint Francis HospitalUzuungvfxb66-26-5600 11:37-0400Systolic blood yekgpptp598 mm[Hg]unamiao DO Work Phone: Juxta LabsSaint John's Saint Francis HospitalTbwcqphflj25-53-9934 09:17-0400Body khywkr344.6 cmCorey Koubachi DO Work Phone: Juxta LabsSaint John's Saint Francis HospitalVgfcfrsayx11-33-8521 09:17-0400Body mass index (BMI) [Ratio]44.93 kg/b4Tgpgq Siva DO Work Phone: NO Fvpaxhaala98-72-0555 09:17-0400Body cydhzw338.73 kgCorey Siva DO Work Phone: NO Ktxldhkfdy83-99-4151 09:17-0400Diastolic blood vlqguaiy85 mm[Hg]Eduarda Siva DO Work Phone: NO Bkzwzpfqzq62-56-2125 09:17-0400Systolic blood mm[Hg]Eduardayunior Galano DO Work Phone: [facility] Encounters Encounter DateEncounter TypeCare ProviderFacilityStart: 04-10-2025 End: 33-52-3510Uryimm flowsheetCorey Siva DO Work Phone: no [facility] OBGYNStart: 04-10-2025 End: 27-83-6748Pcexii flowsheetCorey Siva DO Work Phone: NO [facility] OBGYNStart: 04-10-2025 End: 24-62-9567Iiolecb encounter procedureCorey Siva DO Work Phone: noMS HealthcareStart: 04-10-2025 End: 83-51-9872Cakwohen preventive med est patient 18-39 yrsCorey Siva DO Work Phone: [facility] OBGYNComment on above:Well woman exam with routine gynecological exam; DysmenorrheaStart: 03-20-2025 End: 29-25-1593Myqaxbuqi Result EncounterEsther Logan NP Work Phone: no[facility] External Department UnsolicitedStart: 03-20-2025 End: 24-31-7366Ddcqnkbww Result EncounterEsther Logan NP Work Phone: no[facility] External Department UnsolicitedStart: 03-13-2025 End: 58-97-2608Aviucxksk Result EncounterEsther Logan NP Work Phone: noms External Department UnsolicitedStart: 03-13-2025 End: 50-83-6319Egpijezuv Result EncounterEsther Logan NP Work Phone: noms External Department UnsolicitedStart: 03-05-2025 End: 34-06-1481Zjpxeg flowsheetCorey Siva DO Work Phone: [facility] OBGYNStart: 03-05-2025 End: 21-27-0896Jhwxhb flowsheetCorey Siva DO Work Phone: [facility] [place] OBGYNStart: 03-05-2025 End: 17-81-1928Npgyqu outpatient new 20 minutesCorey Siva DO Work Phone: [facility] OBGYNComment on above:PCOS (polycystic ovarian syndrome) (Primary Dx); Irregular periods/menstrual cyclesStart: 03-05-2025 End: 05-37-4294dodywzfzoqXLHQM FAZIONot AvailableStart: 11-11-2022 End: 90-82-1039vmezyeympbQTPGD PARKERFacility:H4Vhlwi: 08-27-2022 End: 27-24-6004qzmqtfvtvwEehbmpv HARWOODFacility:[facility] Procedures DateProcedureProcedure DetailPerforming ClinicianStart: 05-96-5711AK PELVIS W/ TRANSVAGINALKristina Desmond SOFTWARE QUALITY ANALYST Work Phone: Start: 67-26-3560JDT CBC WITH AUTO DIFFEsther Logan NP Work Phone: Start: 91-89-2344Xghqod-up visit Plan of Treatment DateCare ActivityDetailAuthorStart: 04-10-2025 End: 82-84-3259Aqbtjhl encounter procedureNOMS Moya OBGYNComment on above: ArrivedStart: 03-20-2025 End: 94-56-2154Xjwpnlhrrqpn / ancillary services zabwxxljwq62/07/2025 8:30 AM EDT Ancillary Procedure [facility] [address] [place] [address] [place] [id number] [facility] [place] OBGYNStart: 03-05-2025 End: 62-61-4521Gqptbfrqcyvup hormone (AMH)Antimullerian hormone (AMH) Lab Routine Irregular periods/menstrual cycles Expected: 03/05/2025 (Approximate), Expires: 03/05/2026[facility] HealthcareComment on above:Expected: 03/05/2025 (Approximate), Expires: 03/05/2026Start: 03-05-2025 End: 31-09-7007QJUCIJRM Lab Routine PCOS (polycystic ovarian syndrome) Expected: 03/05/2025 (Approximate), Expires: 03/05/2026[facility] HealthcareComment on above: Expected: 03/05/2025 (Approximate), Expires: 03/05/2026Start: 03-05-2025 End: 05-47-0886PO PelvisUS Pelvis w/ TV Imaging Routine PCOS (polycystic ovarian syndrome) Expected: 03/05/2025, Expires: 03/05/2026[facility] HealthcareComment on above:Expected: 03/05/2025, Expires: 03/05/2026Start: 03-05-2025 End: 74-76-6831Wpdnyzs encounter xoevlzlai47/22/2025 9:10 AM EDT Office Visit SUDHA ASHLEY [address] [id number] Eduarda Paniagua DO [address] [place] [address] ArrivedASH[facility] Nita OBGYNComment on above:ArrivedCBC W Auto Differential panel - BloodCBC and differential Lab Routine PCOS (polycystic ovarian syndrome) Ordered: 03/05/2025[facility] Comment on above:Ordered: 03/05/2025ytology Cervical or vaginal smear or scraping studyPap Smear Pathology and Cytology Routine Well woman exam with routine gynecological exam Ordered: 04/10/2025[facility] Work Phone: comment on above:Ordered: 04/10/2025DHEA-sulfateDHEA- sulfate Lab Routine PCOS (polycystic ovarian syndrome) Ordered: 03/05/2025[facility] HealthcareComment on above:Ordered: 03/05/2025Follicle stimulating hormone Follicle stimulating hormone Lab Routine PCOS (polycystic ovarian syndrome) Ordered: 03/05/2025[facility] HealthcareComment on above:Ordered: 03/05/2025hCG, quantitative, pregnancyhCG, quantitative, Lab Routine PCOS (polycystic ovarian syndrome) Ordered: 03/05/2025[facility] Work Phone: comment on above:Ordered: 03/05/2025Hemoglobin A1c/Hemoglobin.total in BloodHemoglobin A1c Lab Routine Irregular periods/menstrual cycles PCOS (polycystic ovarian syndrome) Ordered: 03/05/2025 [facility] HealthcareComment on above:Ordered: 03/05/2025Luteinizing hormone Luteinizing hormone Lab Routine PCOS (polycystic ovarian syndrome) Ordered: 03/05/2025[facility] HealthcareComment on above:Ordered: 03/05/2025Thyrotropin [Units/volume] in Serum or PlasmaTSH Lab Routine PCOS (polycystic ovarian syndrome) Ordered: 03/05/2025[facility] HealthcareComment on above:Ordered: 03/05/2025 Thyroxine (T4) free [Mass/volume] in Serum or PlasmaT4, free Lab Routine PCOS (polycystic ovarian syndrome) Ordered: 03/05/2025[facility] HealthcareComment on above:Ordered: 03/05/2025 Payers DatePayer CategoryPayerPolicy [id number] [id number] [id number] [id number] Social History DateTypeDetailFacilityStart: 92-54-5216Oibikjn smoking status NHISNever smoked tobaccoNOMS HealthcareStart: 76-38-0051Qcajepz use and exposureSmokeless tobacco non-userNOMS HealthcareStart: 14-48-5042Ffbgzhvui beverage intakeEx-drinker (finding)[facility] HealthcareStart: 06-98-3744Dpvavpk of Social functionNOMS HealthcareStart: 23-22-8926Svtvbkn use panelNOMS HealthcareStart: 85-98-3811Dyy assigned at birthNot on fileNOMS HealthcareStart: 13-67-1653DisAtpoidEMWA Healthcare History of Present illness Narrative 04-10-2025 Note Date & YdusYffjNflhwjno97-24-2533 History of Present illness Narrative* Lilian Hurtado, ELECTRIC TOOL REPAIRER - 04/10/2025 11:20 AM EDT Reason for Appointment: Patient ID: Samantha Alexis is a 24 y.o. female who presents for [facility] Women Visit Patient presents today for Annual [...] nursing note reviewed. Exam conducted with a recruiting specialist present. Vitals: Estimated body mass index is 44.03 kg/m as calculated from the following: Height [...] have them. Patient canalso view results via MyChart. I reinforced importance of condom use for [...] 40 or earlier if risk factors are present.Discussed signs and symptoms of breast cancer and [...] by Lilian Hurtado LPN on behalf of: Eduarda Paniagua DO documented in this encounterNOMS Healthcare History of Present illness Narrative 03-05-2025 Note Date & CozoZlmhElgqdixy15-72-8536 History of Present illness Narrative* Esther Logan NP - 03/05/2025 9:10 AM EDT Reason for Appointment: Patient ID: Samantha Alexis is a 24 y.o. female who presents for Irregular Cycles Patient presents today for Acute Visit. MEDICATIONS Current Outpatient Medications Medication Instructions ASHWAGANDHA [...] nursing note reviewed. Exam conducted with a recruiting specialist present. Vitals: Estimated body mass index is [...] woman PAP/ yearly visit. Documented by Esther Logan NP on behalf of: Eduarda Paniagua DO documented in this encounterASH[facility] Evaluation note Note Date & TypeNoteFacilityEvaluation note* Diagnosis PCOS (polycystic ovarian syndrome)- Primary Polycystic ovaries Irregular periods/menstrual cycles documented in this encounter [facility] Healthcare Evaluation note Note Date & TypeNoteFacilityEvaluation note* Diagnosis Well woman exam with routine gynecological exam Routine gynecological examination Dysmenorrhea documented in this encounter [facility] Healthcare Summary Purpose Family History No Family [...] L ulnar styloidnonunion Surgeon: Dr. Sandhu Resident/Fellow/Other Button Bradder: Samuel Anesthesia: General LMA I.V. Fluids: 600 [...] section and content) DATE CREATED AUTHOR 08/03/2018 [employer] DATE CREATED AUTHOR AUTHOR'S ORGANIZ ATION 11/18/2018 [facility] DATE CREATED AUTHOR AUTHOR'S ORGANIZ ATION 08/28/2022 [facility] DATE CREATED AUTHOR AUTHOR'S ORGANIZ ATION 11/20/2022 [facility] DATE CREATED AUTHOR AUTHOR'S ORGANIZ ATION 03/05/2025 [facility] EPIC Reason for Visit (unrecogniz ed section and content) ReasonCommentsIrregular CyclesReasonCommentsWell Women Visit FOR RECORDS PERTAINING TO PATIENTS WHO ARE [...] BE BASED ON THE PRIMARY CLINICAL RECORDS. [facility] [employer] [facility] provides no warranty or guarantee of the accuracy or completeness of information in this document.
--- OUTSIDE RECORDS SUMMARY | 2025-04-10 19:30 | XMS_ITS | Clinical Summary ---
Author Organization [facility] Address [address] [place] [address] Care Team Providers Care Dance Costume Designer Name Role Phone Unavailable Primary Care Provider Unavailabl e Allergies No known active allergies Medications MedicationSigDispense QuantityRefillsLast FilledStart DateEnd DateStatus ASHWAGANDHA PO Take by mouthActive metFORMIN XR (Glucophage-XR) 500 MG 24 hr tablet Indications:PCOS (polycystic ovarian syndrome)Take 1 tablet (500 mg) by mouth in the evening. Take with meals Do not crush, chew, or split. 30 tablet 1105Active ibuprofen 800 MG tablet Indications:DysmenorrheaTake 1 tablet (800 mg) by mouth every 8 (eight) hours if needed for mild pain 40 tablet 5Active Encounters DateTypeDepartmentCare EwnhKwqngwizvhi91/28/2025 11:20 AM EDTProcedure Visit [facility] [address] [place] [address] Chino Paniagua, Well woman exam with routine gynecological exam; Jrhypnlfuosv19/28/2025amboo flowsheet [facility] [address] [place] [address] Chino Paniagua DO 03/21/2025Telephone [facility] [address] [place] [address] Yanique Huggins MA 03/21/2025Telephone [facility] [address] [place] [address] Blossom Whitlock LPN 03/20/2025linisync Result Encounter NOMS External Department Unsolicited Esther Logan NP 03/13/2025linisync Result Encounter NOMS External Department Unsolicited Esther Logan NP 03/05/2025 9:10 AM EDTOffice Visit [facility] [address] [place] [id number] Chino Paniagua DO PCOS (polycystic ovarian syndrome) (Primary Dx); Irregular periods/menstrual kqeanx9403/05/2025amboo flowsheet [facility] OBGYThaddeus [address] [place] [place] [phone] Chino Paniagua DO from Last 3 Months Family History Medical HistoryRelationNameCommentsDiabetesFatherAsthmaMotherRelationNameStatus OtbsjijsJqfikoOlnzcSbnfhaYvbclReutdg0Wzfzv Social History Tobacco UseTypesPacks/DayYears UsedDateSmoking Tobacco: NeverSmokeless Tobacco: Never Tobacco Cessation:Counseling Given: Not Answered Alcohol UseStandard Drinks/WeekCommentsNot Currently0 (1 standard drink = 0.6 oz pure alcohol)CommentsUnknownSex and Gender InformationValueDate Recorded Sex Assigned at BirthNot on fileLegal IddOhbpsv80/15/2023 7:36 PM EDTGender IdentityNot on fileSexual OrientationNot on file Last Filed Vital Signs Vital SignReadingTime TakenCommentsBlood Nvdfjega715/8410 11:37 AM EDT Pulse--Temperature--Respiratory Rate--Oxygen Saturation--Inhaled Oxygen Concentration--Ddrcoy969 kg (256 lb 8 oz)04/10/2025 11:37 AM FJRVnditu783.6 cm (5' 4 )03/05/2025 9:17 AM EDTBody Mass Index44.03003/05/2025 9:17 AM EDT Plan of Treatment Not on file Procedures Procedure NamePriorityDate/TimeAssociated DiagnosisCommentsUS PELVIS W/ GIHCEIWISUSA53/07/2025 10:00 AM EDT ALL NMNOCMZFYKAPWQCXJVAYNSSmebeou76/30/2025 1:08 PM EDT ALL ANTI-MULLERIAN FWTWJOQSwakwlc15/30/2025 1:08 PM EDT ALL FOLLICLE STIMULATING FDQAYICXbyeduf53/30/2025 1:08 PM EDT ALL LUTEINIZING YGPQLLEJaooobu28/30/2025 1:08 PM EDT ALL DHEA WIKFDRIGjbmxtm30/30/2025 1:08 PM EDT [facility] PREG QUANT XJORsfhgjf07/30/2025 1:08 PM EDT ALL THYROID STIM KJHFZDFZorqshh53/30/2025 1:08 PM EDT ALL THYROXINE (T4) WGOBRfnyxfi61/30/2025 1:08 PM EDT MLR HEMOGLOBIN N0TKtcvoku22/30/2025 1:08 PM EDT ALL CBC WITH AUTO UYFQGezwivf44/30/2025 1:08 PM EDT from Last 3 Months Results * US PELVIS W/ TRANSVAGINAL (03/20/2025 10:00 AM EDT)Anatomical RegionLaterality ModalityOtherSpecimen (Source)Anatomical Location / LateralityCollection Method / VolumeCollection TimeReceived Time03/20/2025 10:00 AM EDT Narrative 03/20/2025 10:03 AM EDT [facility] ?[address] ? [place] [address] ? Ultrasound Report ? Signed ? Patient: SAMANTHA HERNANDEZ ?MR#: [id number] ?? : 2000 ?Acct:[id number] ?? Age/Sex: 24 / F ?ADM Date: 03/20/25 ?? Loc: US ? Attending Dr: Esther Logan ? Ordering Physician: Esther Logan ?? Date of Service: 03/20/25 ?? Procedure(s): US pelvis w/ transvaginal ?? Accession Number(s): [id number] ? cc: Esther Logan; Physician,Non-Staff M.D. ? [facility] ? [address] ? [place] [address] ? Patient Name: ?? SAMANTHA HERNANDEZ ? MRN: [facility]:[id number] ? date: 2000 ?Sex: F ?? Assigned Patient Location: US ?? Current Patient Location: US ?? Accession/Order Number: [id number] ?? Exam Date: 03/20/2025 ??08:30 ?Report Date: 03/20/2025 ??10:00 ? At the request of: ?? ESTHER ??DESMOND ? Procedure: ??US pelvis w/ transvaginal ? ULTRASOUND PELVIS WITH TRANSVAGINAL ? CLINICAL DATA: Heavy menstrual bleeding. ??Polycystic ovary syndrome. ? COMPARISON: None ? Real-time ultrasound evaluation the pelvis was performed utilizing both a ?? transabdominal and transvaginal approach. ? TRANSABDOMINAL: Estimated uterine size is approximately 9.1 x 2.9 x 4.6 cm. ? No focal myometrial abnormalities are seen. ??The endometrial lining is ?? estimated at 6 mm. ??Both ovaries are visualized. ??The right contains a small ?? cyst. ? TRANSVAGINAL: Transvaginal imaging was performed to better evaluate the uterus ?? and adnexa. ??By this approach, no focal myometrial abnormalities are ?? identified. ??The endometrial lining is estimated at 9 mm. ??Both ovaries are ?? again seen. ??The right measures 4.4 x 3.1 x 3.1 cm. ??It contains a small cyst ?? measuring 2.5 x 1.7 x 2.0 cm. ??There are at least 8 tiny follicles measuring ?? up to 3 - 4 mm in size. ??The left ovary measures 2.0 x 2.2 x 3.8 cm. ??There ?? are at least 9 tiny follicles measuring under 5 mm in size. ??There is ?? documentation of ovarian blood flow with resistive indices of 0.6 ?? bilaterally.. ??No free fluid is identified. ? US/US pelvis w/ transvaginal ?? IMPRESSION: ? SMALL RIGHT RENAL CYST. ? MULTIPLE TINY BILATERAL FOLLICLES WHICH WOULD BE COMPATIBLE WITH HISTORY OF ?? POLYCYSTIC OVARY SYNDROME. ? Impression dictated by: Lilian Rodas M.D. ??03/20/2025 10:00 AM ? Dictation Location: [place] [address] ? Electronically authenticated by: [id number] ??Y ?? Date: 03/20/2025 ??10:00 ? Dictated By: ?Lilian Rodas M.D. ? Signed By: ?03/20/25 1003 ? DD/ 1000 ? TD/TT: ? Nickel Plater: Procedure Note Radiology, Radiologist, - 03/20/2025 [place] [address] Ultrasound Report Signed Patient: SAMANTHA HERNANDEZ EMR#: [id number] : 2000Acct:[id number] Age/Sex: 24 / FADM Date: 03/20/25 Loc: US Attending Dr: Esther Logan Ordering Physician: Esther Logan Date of Service: 03/20/25 Procedure(s): US pelvis w/ transvaginal Accession Number(s): [id number] cc: Esther Logan; Physician,Non-Staff M.D. The [address] [address] Patient Name: SAMANTHA HERNANDEZ MRN: [facility]:[id number] date: 2000 Sex: F Assigned Patient Location: Current Patient Location: US Accession/Order Number: [id number] Exam Date: 03/20/2025 08:30 Report Date: 03/20/2025 10:00 At the request of: ESTHER LOGAN Procedure: US pelvis w/ transvaginal ULTRASOUND PELVIS WITH TRANSVAGINAL CLINICAL DATA: Heavy menstrual bleeding. Polycystic ovary syndrome. COMPARISON: None Real-time ultrasound evaluation the pelvis was performed utilizing both a transabdominal and transvaginal approach. TRANSABDOMINAL: Estimated uterine size is approximately 9.1 x 2.9 x 4.6cm. No focal myometrial abnormalities are seen. The endometrial lining is estimated at 6 mm. Both ovaries are visualized. The right contains asmall cyst. TRANSVAGINAL: Transvaginal imaging was performed to better evaluate theuterus and adnexa. By this approach, no focal myometrial abnormalities are identified. The endometrial lining is estimated at 9 mm. Both ovariesare again seen. The right measures 4.4 x 3.1 x 3.1 cm. It contains a smallcyst measuring 2.5 x 1.7 x 2.0 cm. There are at least 8 tiny folliclesmeasuring up to 3 - 4 mm in size. The left ovary measures 2.0 x 2.2 x 3.8 cm.There are at least 9 tiny follicles measuring under 5 mm in size. There is documentation of ovarian blood flow with resistive indices of 0.6 bilaterally.. No free fluid is identified. US/US pelvis w/ transvaginal IMPRESSION: SMALL RIGHT RENAL CYST. MULTIPLE TINY BILATERAL FOLLICLES WHICH WOULD BE COMPATIBLE WITH HISTORYOF POLYCYSTIC OVARY SYNDROME. Impression dictated by: Lilian Rodas M.D. 03/20/2025 10:00 AM Dictation Location: [place] [address] Electronically authenticated by: [id number] Y Date: 0:00 Dictated By: Lilian Rodas M.D. Signed By:03/20/25 1003 DD/ 1000 TD/TT: Nickel Plater: Authorizing ProviderResult TypeResult StatusEsther Logan NPCLINISYMARA IMAGING Final Result * TB[facility] PREG QUANT HCG (03/13/2025 1:08 PM EDT)ComponentValueRef RangeTest Method Analysis TimePerformed AtPathologist SignatureHCG QUANTITATIVE<1mIU/mLTBH Comment: 5-50 ? 0.2-1 WEEK 50-500 ? 1-2 WEEKS 100-5,000 ?2-3 WEEKS 500-10,000 ? 3-4 WEEKS 1,000-50,000 ?? 4-5 WEEKS 10,000-100,000 5-6 WEEKS 15,000-200,000 6-8 WEEKS 10,000-100,000 2-3 MONTHS Specimen (Source)Anatomical Location / LateralityCollection Method / Volume Collection TimeReceived Time03/13/2025 1:08 PM EDT03/13/2025 1:09 PM EDT Narrative [facility] - 03/13/2025 1:49 PM EDT Authorizing ProviderResult TypeResult StatusEsther Logan NPCLINISYNCFinal ResultPerforming OrganizationAddBryn Mawr Hospitalty/State/ZIP CodePhone Number [facility] * MLR HEMOGLOBIN A1C (03/13/2025 1:08 PM EDT)ComponentValueRef RangeTest Method Analysis TimePerformed AtPathologist SignatureGLYCOHEMOGLOBIN A1C5.14.5 - 6.2 %TBHComment: ADA RECOMMENDED LIMIT 4.0 - 6.0 ADA THERAPEUTIC TARGET < 7.0 ACTION SUGGESTED > 7.0 ESTIMATED AVERAGE SIWSXPS744qs/dLTBHSpecimen (Source)Anatomical Location / LateralityCollection Method / VolumeCollection TimeReceived Time03/13/2025 1:08 PM EDT03/13/2025 1:09 PM EDT Narrative [facility] - 03/13/2025 1:45 PM EDT Authorizing ProviderResult TypeResult StatusEsther JacksonRegional Rehabilitation HospitalLINISYNCNovant Health [facility] ResultPerforming OrganizationAddressty/State/ZIP CodePhone Number [facility] * ALL THYROXINE (T4) FREE (03/13/2025 1:08 PM EDT)ComponentValueRef RangeTest MethodAnalysis TimePerformed AtPathologist SignatureFREE T41.400.76 - 1.46 ng/dLTBHSpecimen (Source)Anatomical Location / LateralityCollection Method / VolumeCollection TimeReceived Time03/13/2025 1:08 PM EDT03/13/2025 1:09 PM EDT Narrative [facility] - 03/13/2025 1:49 PM EDT Authorizing ProviderResult TypeResult StatusEsther Logan [facility] HOSPITALLINISYNCQueens Hospital Centeral ResultPerforming OrganizationAddBryn Mawr Hospitalty/State/ZIP CodePhone Number [facility] * ALL THYROID STIM HORMONE (03/13/2025 1:08 PM EDT)ComponentValueRef RangeTest MethodAnalysis TimePerformed AtPathologist SignatureTHYROID STIMULATING HORMONE0.7000.358 - 3.740 uIU/mLTBHSpecimen (Source)Anatomical Location / LateralityCollection Method / VolumeCollection TimeReceived Time03/13/2025 1:08 PM EDT03/13/2025 1:09 PM EDT Narrative [facility] - 03/13/2025 1:49 PM EDT Authorizing ProviderResult TypeResult StatusEsther Logan NPCLINISYNCFinal ResultPerforming OrganizationAddressCity/State/ZIP CodePhone Number [facility] * ALL LUTEINIZING HORMONE (03/13/2025 1:08 PM EDT)ComponentValueRef RangeTest MethodAnalysis TimePerformed AtPathologist SignatureLUTEINIZING HORMONE(LH) 10.3. mIU/mLTBHComment: ? Adult Female ?Range ?Follicular phase ?2.4 - ??12.6 ?Ovulation phase ?14.0 - ??95.6 ?Luteal phase ?1.0 - ??11.4 ?Postmenopausal ?7.7 - ??58.5 Specimen (Source)Anatomical Location / LateralityCollection Method / Volume Collection TimeReceived Time03/13/2025 1:08 PM EDT03/13/2025 1:09 PM EDT Narrative [facility] - 03/14/2025 4:07 AM EDT Authorizing ProviderResult TypeResult StatusEsther VIEIRALINISYNCFinal ResultPerforming OrganizationAddressCity/State/ZIP CodePhone Number [facility] * ALL FOLLICLE STIMULATING HORMONE (03/13/2025 1:08 PM EDT)ComponentValueRef RangeTest MethodAnalysis TimePerformed AtPathologist SignatureFSH4.7. mIU/mL TBHComment: ? Adult Female ? Range ?Follicular phase ?3.5 - ??12.5 ?Ovulation phase ? 4.7 - ??21.5 ?Luteal phase ?1.7 - ?? 7.7 ?Postmenopausal ? 25.8 - 134.8 Performed at: ??CB - [facility] [address], [place], [place] ??[id number] Manager Office: Kwabena Brown PhD, Phone: ??[phone] Specimen (Source)Anatomical Location / LateralityCollection Method / Volume Collection TimeReceived Time03/13/2025 1:08 PM EDT03/13/2025 1:09 PM EDT Narrative [facility] - 03/14/2025 4:07 AM EDT Authorizing ProviderResult TypeResult StatusKrtae Banner NPCLINISYNCFinal ResultPerforming OrganizationAddressCity/State/ZIP CodePhone Number [facility] * ALL DHEA SULFATE (03/13/2025 1:08 PM EDT)ComponentValueRef RangeTest Method Analysis TimePerformed AtPathologist SignatureDHEA-FKERNZI447.0110.0 - 431.7 ug/dLTBHSpecimen (Source)Anatomical Location / LateralityCollection Method / VolumeCollection TimeReceived Time03/13/2025 1:08 PM EDT03/13/2025 1:09 PM EDT Narrative [facility] - 03/14/2025 4:07 AM EDT Authorizing ProviderResult TypeResult StatusKrtae Logan NPCLINISYNCFinal ResultPerforming OrganizationAddressty/State/ZIP CodePhone Number [facility] * ALL DEHYDROEPIANDROSTERONE (03/13/2025 1:08 PM EDT)ComponentValueRef RangeTest MethodAnalysis TimePerformed AtPathologist SignatureDHEA, [id number] - 701 ng/dLTBHComment: This test was developed and its performance characteristics determined by [facility]. It has not been cleared or approved by the Food and Drug Administration. Performed at: ?? - [facility] [address] ??[id number] Manager Office: Mili Zamudio MD, Phone: ??[phone] Specimen (Source)Anatomical Location / LateralityCollection Method / Volume Collection TimeReceived Time03/13/2025 1:08 PM EDT03/13/2025 1:09 PM EDT Narrative [facility] - 03/20/2025 5:08 PM EDT Authorizing ProviderResult TypeResult StatusKristina Desmond NPCLINISYNCFinal ResultPerforming OrganizationAddressCity/State/ZIP CodePhone Number [facility] * ALL CBC WITH AUTO DIFF (03/13/2025 1:08 PM EDT)ComponentValueRef RangeTest MethodAnalysis TimePerformed AtPathologist SignatureTBH WBC5.44.0 - 11.0 10 3/uLTBHTBH RBC4.924.20 - 5.40 10 6/uLTBHTBH HGB14.212.0 - 16.0 g/dLTBHTBH HCT 41.636.0 - 48.0 %TBHTBH MCV84.681.0 - 99.0 fLTBHTBH MCH28.926.7 - 34.0 pgTBH TBH MCHC34.129.9 - 35.2 g/dLTBHTBH RDW13.211.0 - 15.0 %TBHTBH LDB482985 - 450 10 3/uLTBHTBH MPV10.09.5 - 13.5 fLTBHNEUTROPHILS PERCENT AUTO53.143.0 - 75.0 % TBHLYMPHOCYTES PERCENT AUTO36.720.5 - 60.0 %TBHMONOCYTES PERCENT AUTO7.81.7 - 12.0 %TBHTBH EO %1.70.9 - 7.0 %TBHBASOPHILS PERCENT AUTO0.70.2 - 2.0 %TBH IMMATURE GRANULOCYTES PCT AUTO0.00.0 - 0.5 %TBHNEUTROPHILS ABSOLUTE AUTO2.91.4 - 6.5 10 3/uLTBHLYMPHOCYTES ABSOLUTE AUTO2.01.2 - 3.8 10 3/uLTBHMONOCYTES ABSOLUTE AUTO0.40.3 - 0.8 10 3/uLTBHTBH EO #0.10.0 - 0.7 10 3/uLTBHBASOPHILS ABSOLUTE AUTO0.00.0 - 0.1 10 3/uLTBHIMMATURE GRANULOCYTES ABS AUTO0.000.00 - 0.03 10 3/uLTBHSpecimen (Source)Anatomical Location / LateralityCollection Method / VolumeCollection TimeReceived Time03/13/2025 1:08 PM EDT03/13/2025 1:09 PM EDT Narrative [facility] - 03/13/2025 1:31 PM EDT Authorizing ProviderResult TypeResult StatusEsther Logan NPCLINISYNCFinal ResultPerforming OrganizationAddressCity/State/ZIP CodePhone Number [facility] * ALL ANTI-MULLERIAN HORMONE (03/13/2025 1:08 PM EDT)ComponentValueRef RangeTest MethodAnalysis TimePerformed AtPathologist SignatureANTI-MULLERIAN HORMONE (AMH)9.12. ng/mLTBHComment: For assays employing antibodies, the possibility exists for interference by heterophile antibodies in the samples.1 1.Joshua Peck ??Interferences in Immunoassays - still a threat. Clin. Chem. 2000; 46: 4697-1316. This test was developed and its performance characteristics determined by [facility]. It has not been cleared or approved by the Food and Drug Administration. Reference Range: Females 20 - 25y: 1.23 - 11.51 Median ??4.70 AMH concentrations of >= 1.06 ng/mL is correlated with a better response to ovarian stimulation, produced more retrievable oocytes and higher odds of live according to Savannaher et al. ??Fertility and Sterility. 2010: 94:9786-1968. ??The current AMH test method correlates with the study method with a slope of 0.94. Females at risk of ovarian hyperstimulation syndrome or polycystic ovarian syndrome (PCOS) may exhibit elevated serum AMH concentrations. ?? AMH levels from PCOS patients may be 2 to 5 fold higher than age-appropriate reference interval values. Granulosa cell tumors of the ovary may secrete AMH along with other tumor markers. ??Elevated AMH is not specific for malignancy, and the assay should not be used exclusively to diagnose or exclude an AMH-secreting ovarian tumor. Performed at: ??[facility] - [facility] [employer] [address] [place] [id number] Manager Office: Sharita Amanda MD, Phone: ??[phone] Specimen (Source)Anatomical Location / LateralityCollection Method / Volume Collection TimeReceived Time03/13/2025 1:08 PM EDT03/13/2025 1:09 PM EDT Narrative [facility] - 03/18/2025 3:07 AM EDT Authorizing ProviderResult TypeResult StatusKristina Desmond NPCLINISYNCFinal ResultPerforming OrganizationAddressCity/State/ZIP CodePhone Number [facility] TB from Last 3 Months Insurance
--- OUTSIDE RECORDS SUMMARY | 2025-04-10 19:30 | XMS_ITS | Encounter Summary ---
Author Organization [facility] Address [address] [place] [address] Care Team Providers Care Mix House Operator Name Role Phone Unavailable Primary Care Provider Unavailabl e Encounter Details DateTypeDepartmentCare Team (Latest Contact Info)Njvytxqvkjk98/08/2025Telephone [facility] [address] [place] [address] [place] [address] Blossom Whitlock LPN Social History Tobacco UseTypesPacks/DayYears UsedDateSmoking Tobacco: NeverSmokeless Tobacco: NeverAlcohol UseStandard Drinks/WeekCommentsNot Currently0 (1 standard drink = 0.6 oz pure alcohol)CommentsUnknownSex and Gender InformationValueDate RecordedSex Assigned at BirthNot on fileLegal EmgSwyptx14/15/2023 7:36 PM EDT Gender IdentityNot on fileSexual OrientationNot on filedocumented as of this encounter Miscellaneous Notes * Telephone Encounter - Blossom Whitlock LPN - 03/21/2025 8:49 AM EDT 0845 Called [facility] Radiology and spoke with Karma in regards to more information on renal cyst that were noted on impression of ultrasound. Karma voiced that she will discuss with Beverley and see if they can reach out to radiologist and they are able [place] ext [phone] if they have any questions for [facility]Blossom Cole LPN Addendum had been received and patient notified that it was actually an ovarian cyst. --ss documented in this encounter Plan of Treatment Not on file documented as of this encounter Visit Diagnoses Not on filedocumented in this encounter
--- OUTSIDE RECORDS SUMMARY | 2025-04-10 19:30 | XMS_ITS | Encounter Summary ---
Author Organization [facility] Address [address] [place] [address] Care Team Providers Care Steam Pan Sponger Name Role Phone Unavailable Primary Care Provider Mushtaq e Encounter Details DateTypeDepartmentCare Team (Latest Contact Info)Karglvgkhlg37/28/2025amboo flowsheet [facility] [place] [facility] [address] [place] [address] Chino Paniagua DO [address] [place], [place] [id number] Social History Tobacco UseTypesPacks/DayYears UsedDateSmoking Tobacco: NeverSmokeless Tobacco: NeverAlcohol UseStandard Drinks/WeekCommentsNot Currently0 (1 standard drink = 0.6 oz pure alcohol)CommentsUnknownSex and Gender InformationValueDate RecordedSex Assigned at BirthNot on fileLegal RhqVtissd09/15/2023 7:36 PM EDT Gender IdentityNot on fileSexual OrientationNot on filedocumented as of this encounter Plan of Treatment Not on file documented as of this encounter Visit Diagnoses Not on filedocumented in this encounter
== END 2025-04-10 19:26 | disposition home or self-care (01) ==
LOC: LAB 19:25
PROVIDERS: Visit Provider Emergency Medicine
DX: Z01.419 Encounter for gynecological examination (general) (routine) without abnormal findings (principal)
CPT/HCPCS: 88175